=== PATIENT | female | born 1940 ===

== ENCOUNTER 2017-04-15 13:12 | Inpatient (IN) | payer MEDICARE, OTHER ==
--- NOTE | 2017-04-15 13:42 | C.PDOC ---
History Of Present Illness A 76 year old female, with a past medical history that includes HTN and DM, is brought to the ED by EMS for an altered mental status. Patient was previously at baseline and not confused. Patient was not following commands and EMS was called. Patient and Family are poor historians. History provided by EMS was also limited. No reported fever or any other complaints. Time Seen by Provider: 04/15/17 13:14 Chief Complaint (Nursing): Weakness/Neurological Deficit History Per: Patient, EMS, Family History/Exam Limitations: other (Poor historians) Onset/Duration Of Symptoms: Hrs Current Symptoms Are (Timing): Still Present Associated Symptoms Preceding Syncopal Episode: No Predromal Symptoms (Sudden Onset) Seizure Or Post-ictal Symptoms: None Fall Associated With With Symptoms: No Severity: Moderate Recent travel outside of the [place]: No Past Medical History Reviewed: Historical Data, Nursing Documentation, Vital Signs Vital Signs: Last Vital Signs Temp 98.2 F 04/18/17 04:38 Pulse 90 04/18/17 04:38 Resp 20 04/18/17 04:38 BP 146/74 04/18/17 05:52 Pulse Ox 97 04/17/17 23:25 - Medical History PMH: Atrial Fibrillation, HTN, Hypercholesterolemia Family History: States: No Known Family Hx - Social History Hx Alcohol Use: No Hx Substance Use: No - Immunization History Hx Tetanus Toxoid Vaccination: No Hx Influenza Vaccination: No Hx Pneumococcal Vaccination: No Review Of Systems Except As Marked, All Systems Reviewed And Found Negative. Constitutional: Negative for: Fever, Chills Gastrointestinal: Negative for: Nausea, Vomiting, Diarrhea Neurological: Positive for: Altered Mental Status Physical Exam - Physical Exam Appears: Non-toxic Skin: Warm, Dry, No Rash Head: Atraumatic, Normacephalic Eye(s): bilateral: Normal Inspection Oral Mucosa: Moist Cardiovascular: Rhythm Regular Respiratory: Normal Breath Sounds, No Rales, No Rhonchi, No Wheezing Gastrointestinal/Abdominal: Soft, No Tenderness Extremity: Normal ROM, No Tenderness, No Calf Tenderness, No Deformity, No Swelling Neurological/Psych: Other (Able to respond to some commands. Nonverbal. ) ED Course And Treatment - Laboratory Results Result Diagrams: 04/18/17 06:56 04/18/17 06:56 ECG: Interpreted By Me, Viewed By Me ECG Rhythm: Sinus Rhythm Interpretation Of ECG: Nonspecific ST/T changes Rate From EC O2 Sat by Pulse Oximetry: 100 NIHSS Stroke Scale - Date/Time Evaluation Performed Date Performed: 04/15/17 Time Performed: 14:38 - How Severe is the Stoke Level of Consciousness: 0=Alert LOC to Questions: 2=Neither correct LOC to commands: 1=Obeys one correctly Best Gaze: 0=Normal Visual: 3=Bilateral Facial: 1=Minor asymmetry Motor Arm - Left: 2=Falls before 10 sec Motor Arm - Right: 2=Falls before 10 sec Motor Leg - Left: 3=No effort against gravity (falls immediately) Motor Leg - Right: 3=No effort against gravity (falls immediately) Limb Ataxia: 0=Absent Sensory: 2=Severe to total loss Best Language: 3=Mute Dysarthia: 2=Severe, near unintelligible or worse Extinction & Inattention (Neglect): 0=Normal, no object Score: 24 Severity Of Stroke: 16-20=Moderate/Severe Stroke rTPA Inclusion/Exclusion - Refusal of Treatment Patient Refused Treatment: No - Inclusion Criteria for Altepase Patient is 18 years or Older: Yes The Clinical Diagnosis of Ischemic Stroke That is Causing a Potentially Disabling Neurological Deficit: Yes Time of Onset is Well Established to be Less Than 270 Minute Before Treatment Would Begin: Yes Risk/Benefit Discussed With Patient/Family Member Present: Yes - Exclusion Criteria for Altepase Uncontrolled Hypertension at Time of Treatment (Systolic BP above 185 or Diastolic BP above 110 mmHg): Yes - Warning to TPA With Conditions Following Conditions Weighed Against Anticipated Benefit: Yes Condition: Stroke Severity Too Severe (NIHSS greater than 22) Additional Condition (For 3-4.5 Hour Window): NIHSS Above 25 Medical Decision Making Medical Decision Making: Plan: -- CT Head -- EKG -- CXR -- Labs Progress Notes: Discussed patient as a code stroke with Dr. Desai, who states patient is not a tpa candidate. Case discussed with Dr. Giles, who accepts the patient for admission to Tele/Obs. Disposition - Disposition Disposition: HOSPITALIZED Disposition Time: 03:00 Condition: FAIR - Clinical Impression Clinical Impression: Weakness, Altered mental status - Scribe Statement The provider has reviewed the documentation as recorded by the Scribmejia Danielle All medical record entries made by the Scribe were at my direction and personally dictated by me. I have reviewed the chart and agree that the record accurately reflects my personal performance of the history, physical exam, medical decision making, and the department course for this patient. I have also personally directed, reviewed, and agree with the discharge instructions and disposition.
--- NOTE | 2017-04-15 13:43 | CT ---
PROCEDURE: CT HEAD WITHOUT CONTRAST. HISTORY: right side weakness COMPARISON: None available. TECHNIQUE: Axial computed tomography images were obtained through the head/brain without intravenous contrast. Radiation dose: Total exam DLP = mGy-cm. This CT exam was performed using one or more of the following dose reduction techniques: Automated exposure control, adjustment of the mA and/or kV according to patient size, and/or use of iterative reconstruction technique. FINDINGS: HEMORRHAGE: No intracranial hemorrhage. BRAIN: No mass effect or edema. Minimal atrophy, less than expected for patient age. Mild periventricular white matter lucency consistent with age related microvascular white matter ischemic change. Small lucency in left centrum semiovale likely old white matter lacunar infarct. . VENTRICLES: Unremarkable. No hydrocephalus. CALVARIUM: Unremarkable. PARANASAL SINUSES: Unremarkable as visualized. No significant inflammatory changes. MASTOID AIR CELLS: Unremarkable as visualized. No inflammatory changes. OTHER FINDINGS: None. IMPRESSION: No intracranial hemorrhage. No intracranial mass or evidence of acute infarct. Mild involutional change consistent with age. These findings were discussed by telephone with Dr. Plascencia at 1:38 p.m. on 04/15/2017.
[2017-04-15 13:49] LABS: BASO % 0.2 % (0.0-2.0); HEMATOCRIT 42.9 % (34.0-47.0); LYMPH # 1.3 K/uL (1.0-4.3); LYMPH % 13.2 % (20.0-40.0); MEAN CELL VOLUME 90.2 fL (81.0-99.0); MEAN CORPUSCULAR HEMOGLOBIN 30.2 pg (27.0-31.0); MEAN CORPUSCULAR HGB CONC 33.4 g/dL (33.0-37.0); MEAN PLATELET VOLUME 8.4 fL (7.2-11.7); MONO # 0.6 K/uL (0.0-0.8); MONO % 6.5 % (0.0-10.0); RED CELL DISTRIBUTION WIDTH 13.2 % (11.5-14.5); WHITE BLOOD COUNT 9.6 K/uL (4.8-10.8)
[2017-04-15 13:57] LABS: INR 1.1
[2017-04-15 13:59] LABS: CHLORIDE 85 mmol/L (98-107); POTASSIUM 3.9 mmol/L (3.6-5.2); SODIUM 124 mmol/L (132-148)
[2017-04-15] MEDS ORDERED: Labetalol 25mg/5ml Syringe IVP STA (13:59)
[2017-04-15 14:01] LABS: ALB/GLOB RATIO 1.3 (1.0-2.1); ALKALINE PHOSPHATASE 68 U/L (38-126); AST/SGOT 20 U/L (14-36); BILIRUBIN,TOTAL 1.2 mg/dL (0.2-1.3); BLOOD UREA NITROGEN 12 mg/dL (7-17); CARBON DIOXIDE 27 mmol/L (22-30); CHOLESTEROL 224 mg/dL (0-199); GFR AFRICAN-AMERICAN > 60; TOTAL PROTEIN 7.3 g/dL (6.3-8.3)
[2017-04-15 14:02] LABS: ALT/SGPT 16 U/L (9-52)
[2017-04-15] MEDS ORDERED: Labetalol 25mg/5ml Syringe ONE (14:02)
[2017-04-15 14:03] LABS: CALCIUM 8.8 mg/dl (8.6-10.4)
[2017-04-15 14:26] LABS: GLUCOSE,RANDOM 402 mg/dL (65-105)
[2017-04-15] MEDS ORDERED: (Novolin R) Insulin Human Regular 100 units/ml vial IV STA (14:29)
--- NOTE | 2017-04-15 14:39 | RAD ---
HISTORY: code stroke COMPARISON: No prior. FINDINGS: LUNGS: Mild venous congestion. Right hilar prominence. Minimal patchy left basilar airspace opacity. PLEURA: No significant pleural effusion identified, no pneumothorax apparent. CARDIOVASCULAR: Status post median sternotomy. Calcification at the aortic knob. Prior CABG. OSSEOUS STRUCTURES: Calcific tendinopathy of the right proximal humerus. VISUALIZED UPPER ABDOMEN: Normal. OTHER FINDINGS: None. IMPRESSION: Mild venous congestion. Right hilar prominence. Minimal patchy left basilar airspace opacity.
[2017-04-15] MEDS ORDERED: (Novolin R) Insulin Human Regular 100 units/ml vial ONE (14:46)
[2017-04-15 14:55] LABS: RBC URINE 1 /hpf (0-3); URINE BILIRUBIN NEGATIVE (NEGATIVE); URINE BLOOD NEGATIVE (NEGATIVE); URINE COLOR Straw (YELLOW); URINE GLUCOSE (UA) 3+ mg/dL (Normal); URINE KETONE TRACE mg/dL (NEGATIVE); URINE LEUKOCYTE ESTERASE NEG Leu/uL (Negative); URINE PROTEIN 1+ mg/dL (NEGATIVE); URINE UROBILINOGEN NORMAL mg/dL (0.2-1.0); WBC URINE < 1 /hpf (0-5)
[2017-04-15] MEDS ORDERED: Sodium Chloride 0.9% 1,000 ML IV SCH (16:00)
--- NOTE | 2017-04-15 16:31 | CP.PCM.HP ---
<Pravin Bryson - Last Filed: 04/15/17 16:26> History of Present Illness - History of Present Illness History of Present Illness: This is a 76 yo female with past medical hx of Alzheimers, HTN, HLD, heart disease presenting from home after stroke like symptoms. Pt not able to answer any questions. Hx obtained from , who is very poor historian. She was in usual state of health until 11 am this morning when she took all her meds and then looked like she was about to faint. She had trouble walking and seemed to be very weak. She became lethargic and would not respond appropriately. This happened on tuesday. The family says they did not seek med help at that time. The family saw Dr. Michael on tuesday who refilled her medications. Time last known well 11 am- with loss of strength, difficulty with gait, trouble speaking. Denies fevers, chills, cp, sob, vomiting, diarrhea, any bleeding. PMH: HTN, HLD, heart disease, Alzheimer's disease PSH: Heart surgery (unsure what type) Allergies: NKDA FH: Non contributory Social hx: Denies smoking, drinking, drugs. Normally able to do ADLs. Born in [facility]. Meds: cardizem, losartan, hctz, coreg, pravastatin, plavix, isosorbide, glimepiride, lyrica, metformin Present on Admission - Present on Admission Any Indicators Present on Admission: Yes History of DVT/PE: No History of Uncontrolled Diabetes: Yes Urinary Catheter: No Decubitus Ulcer Present: No Review of Systems - Review of Systems Systems not reviewed;Unavailable: Altered Mental Status Past Patient History - Infectious Disease Hx of Infectious Diseases: None - Tetanus Immunizations Tetanus Immunization: Unknown - Past Medical History & Family History Past Medical History?: Yes Past Family History: Reviewed and not pertinent - Past Social History Smoking Status: Never Smoked Chewing Tobacco Use: No Cigar Use: No Alcohol: None Drugs: Denies Home Situation {Lives}: With Family Domestic Violence: Negative - CARDIAC Hx Atrial Fibrillation: Yes Hx Hypercholesterolemia: Yes Hx Hypertension: Yes - ENDOCRINE/METABOLIC Hx Diabetes Mellitus Type 2: Yes - PSYCHIATRIC Hx Substance Use: No Meds Allergies/Adverse Reactions: Allergies Allergy/AdvReac Type Severity Reaction Status Date / Time No Known Allergies Allergy Verified 04/15/17 13:16 Physical Exam - Constitutional Additional comments: Lethargic - Head Exam Head Exam: ATRAUMATIC, NORMAL INSPECTION, NORMOCEPHALIC - Eye Exam Eye Exam: EOMI - ENT Exam ENT Exam: Mucous Membranes Moist - Neck Exam Neck exam: Positive for: Full Rom, Normal Inspection - Respiratory Exam Respiratory Exam: NORMAL BREATHING PATTERN. absent: Respiratory Distress - Cardiovascular Exam Cardiovascular Exam: +S1, +S2 Additional comments: Sternotomy scar - GI/Abdominal Exam GI & Abdominal Exam: Normal Bowel Sounds, Soft. absent: Tenderness - Extremities Exam Extremities exam: Positive for: normal inspection - Neurological Exam Neurological exam: Altered Additional comments: Unable to do full neuro exam due to pt's mental status - Psychiatric Exam Additional comments: Unable to assess - Skin Skin Exam: Dry, Intact, Normal Color, Warm Results - Vital Signs Recent Vital Signs: Last Vital Signs Temp 97.8 F 04/15/17 14:09 Pulse 76 04/15/17 15:40 Resp 17 04/15/17 15:40 BP 161/62 H 04/15/17 15:40 Pulse Ox 98 04/15/17 15:40 - Labs Result Diagrams: 04/15/17 13:43 04/15/17 13:43 Labs: Laboratory Results - last 24 hr 04/15/17 14:35 Urine Color Straw Urine Clarity Clear Urine pH 8.0 Ur Specific [place] 1.012 Urine Protein 1+ H Urine Glucose (UA) 3+ H Urine Ketones Trace Urine Blood Negative Urine Nitrate Negative Urine Bilirubin Negative Urine Urobilinogen Normal Ur Leukocyte Esterase Neg Urine WBC (Auto) < 1 Urine RBC (Auto) 1 Assessment & Plan - Assessment and Plan (Free Text) Assessment: This is a 76 yo female with past medical hx of heart disease, HTN, HLD, DM, presenting with stroke like symptoms 1. R/O stroke -Head CT- negative -echo -carotid dopplers -MRI w /wo contrast -neuro consult. Dr. Desai -NG tube -IV hydralazine 10 mg q 6 prn, sbp > 160 -asa 81 daily -plavix 75 daily -cardio consult. Dr. Daniels -urine drug screen -trops x 3, 1st negative -cxr to confirm ng 2. Hx of HLD -continue crestor daily 3. hx of DM -ISS 4. Hx of HTN -hydralazine as above -continue losartan 100 daily -continue coreg 25 bid 5. GI/DVT -protonix daily -SCDs discussed with Dr. Giles <Medhat Giles - Last Filed: 04/16/17 08:15> Results - Vital Signs Recent Vital Signs: Last Vital Signs Temp 97.5 F L 04/15/17 23:30 Pulse 70 04/16/17 00:36 Resp 20 04/15/17 23:30 BP 167/73 H 04/15/17 23:30 Pulse Ox 96 04/15/17 23:30 - Labs Result Diagrams: 04/16/17 06:13 04/16/17 06:13 Labs: Laboratory Results - last 24 hr 04/15/17 04/15/17 04/15/17 14:35 17:22 19:53 WBC RBC Hgb Hct MCV MCH MCHC RDW Plt Count MPV Neut % (Auto) Lymph % (Auto) [place] % (Auto) Eos % (Auto) Baso % (Auto) Neut # Lymph # [place] # Eos # Baso # Sodium Potassium Chloride Carbon Dioxide Anion Gap BUN Creatinine Est GFR ( Amer) Est GFR (Non-Af Amer) Random Glucose Calcium Phosphorus Magnesium Total Bilirubin AST ALT Alkaline Phosphatase Troponin I < 0.0120 Total Protein Albumin Globulin Albumin/Globulin Ratio Urine Color Straw Urine Clarity Clear Urine pH 8.0 Ur Specific [place] 1.012 Urine Protein 1+ H Urine Glucose (UA) 3+ H Urine Ketones Trace Urine Blood Negative Urine Nitrate Negative Urine Bilirubin Negative Urine Urobilinogen Normal Ur Leukocyte Esterase Neg Urine WBC (Auto) < 1 Urine RBC (Auto) 1 Urine Opiates Screen Negative Urine Methadone Screen Negative Ur Barbiturates Screen Negative Ur Phencyclidine Scrn Negative Ur Amphetamines Screen Negative U Benzodiazepines Scrn Negative U Oth Cocaine Metabols Negative U Cannabinoids Screen Negative 04/16/17 04/16/17 04/16/17 02:45 06:13 06:13 WBC 11.2 H RBC 4.53 Hgb 13.7 Hct 40.5 MCV 89.5 MCH 30.3 MCHC 33.8 RDW 13.2 Plt Count 179 MPV 8.4 Neut % (Auto) 76.9 H Lymph % (Auto) 15.9 L [place] % (Auto) 6.9 Eos % (Auto) 0.0 Baso % (Auto) 0.3 Neut # 8.6 H Lymph # 1.8 [place] # 0.8 Eos # 0.0 Baso # 0.0 Sodium 125 L Potassium 3.2 L Chloride 89 L Carbon Dioxide 24 Anion Gap 15 BUN 10 Creatinine 0.6 L Est GFR ( Amer) > 60 Est GFR (Non-Af Amer) > 60 Random Glucose 192 H Calcium 8.1 L Phosphorus 4.2 Magnesium 1.2 L Total Bilirubin 1.0 AST 19 ALT 13 Alkaline Phosphatase 48 Troponin I 0.0450 Total Protein 6.2 L Albumin 3.4 L Globulin 2.9 Albumin/Globulin Ratio 1.2 Urine Color Urine Clarity Urine pH Ur Specific [place] Urine Protein Urine Glucose (UA) Urine Ketones Urine Blood Urine Nitrate Urine Bilirubin Urine Urobilinogen Ur Leukocyte Esterase Urine WBC (Auto) Urine RBC (Auto) Urine Opiates Screen Urine Methadone Screen Ur Barbiturates Screen Ur Phencyclidine Scrn Ur Amphetamines Screen U Benzodiazepines Scrn U Oth Cocaine Metabols U Cannabinoids Screen Attending/Attestation - Attestation I have personally seen and examined this patient.: Yes I have fully participated in the care of the patient.: Yes I have reviewed all pertinent clinical information: Yes Notes (Text): 04/16/17 08:12 Medical attending: Patient was seen and examined by me, agrees the above note by medical review specialist. The patient was seen in the emergency room, her was present as well as an additional family member at bedside. Neurology said that they do not believe this patient is a TPA candidate. Were try to get MRI with contrast be done however I was told that the machine was currently down yesterday. In the meantime were to get additional cardiac enzymes, EKGs, echo as well. The patient is on Plavix and when I asked the about this he said that he did not know why she also has a noticeable chest scar on her potentially she could've had a bypass or heart valve replacement. However the is not sure I later spoke with the patient's primary care physician and asked if he was aware of any of her cardiac history however he explains to me that this patient was formally from another practice and he has just recently started to see the patient so he is not aware of any cardiac history. The patient will need both a cardiology and neurology evaluation. The patient is awake, however she is not following any commands, and she does appear to be confused as reported above in the resident note. She is observed to be moving all 4 extremities, and this is after we attempted to pass NG tube. She pulled out the first NG tube and I had to replace the second one In the meantime she's given need to be on aspirin statin, moderate blood pressure control. We have to monitor her the patient's sodium as it is 124 -we' re to discontinue the hydrochlorothiazide. Examination she does appear to be somewhat dry in appearance Thank you very much, Medhat Giles 04/16/17 08:15
--- NOTE | 2017-04-15 16:56 | RAD ---
HISTORY: ng tube COMPARISON: 04/15/2017 at 1:38 p.m. FINDINGS: LUNGS: No active pulmonary disease. PLEURA: No significant pleural effusion identified, no pneumothorax apparent. CARDIOVASCULAR: Normal heart size. Sternotomy wires. New nasogastric tube extends to left upper quadrant of the abdomen. OSSEOUS STRUCTURES: No significant abnormalities. VISUALIZED UPPER ABDOMEN: Normal. OTHER FINDINGS: None. IMPRESSION: New NG tube appropriately positioned.
[2017-04-15] MEDS ORDERED: Sodium Chloride 0.9% 1,000 ML ONE (18:05)
--- NOTE | 2017-04-15 21:35 | CP.PCM.CON ---
History of Present Illness - History of Present Illness History of Present Illness: Patient seen and evaluated Admitted for possible CVA H/O Open heart surgery PMH: HTN, HLD, heart disease, Alzheimer's disease PSH: Heart surgery (unsure what type) Allergies: NKDA FH: Non contributory Social hx: Denies smoking, drinking, drugs. Normally able to do ADLs. Born in [facility]. Meds: cardizem, losartan, hctz, coreg, pravastatin, plavix, isosorbide, glimepiride, lyrica, metformin Present on Admission - Present on Admission Any Indicators Present on Admission: Yes History of DVT/PE: No History of Uncontrolled Diabetes: Yes Urinary Catheter: No Decubitus Ulcer Present: No Review of Systems - Review of Systems Systems not reviewed;Unavailable: Altered Mental Status Meds Allergies/Adverse Reactions: Allergies Allergy/AdvReac Type Severity Reaction Status Date / Time No Known Allergies Allergy Verified 04/15/17 13:16 Physical Exam - Constitutional Additional comments: Lethargic - Head Exam Head Exam: ATRAUMATIC, NORMAL INSPECTION, NORMOCEPHALIC - Eye Exam Eye Exam: EOMI - ENT Exam ENT Exam: Mucous Membranes Moist - Neck Exam Neck exam: Positive for: Full Rom, Normal Inspection - Respiratory Exam Respiratory Exam: NORMAL BREATHING PATTERN. absent: Respiratory Distress - Cardiovascular Exam Cardiovascular Exam: +S1, +S2 Additional comments: Sternotomy scar - GI/Abdominal Exam GI & Abdominal Exam: Normal Bowel Sounds, Soft. absent: Tenderness - Extremities Exam Extremities exam: Positive for: normal inspection - Neurological Exam Neurological exam: Altered Additional comments: Unable to do full neuro exam due to pt's mental status - Psychiatric Exam Additional comments: Unable to assess - Skin Skin Exam: Dry, Intact, Normal Color, Warm Past Patient History - Infectious Disease Hx of Infectious Diseases: None - Tetanus Immunizations Tetanus Immunization: Unknown - Past Medical History & Family History Past Medical History?: Yes Past Family History: Reviewed and not pertinent - Past Social History Smoking Status: Never Smoked Chewing Tobacco Use: No Cigar Use: No Alcohol: None Drugs: Denies Home Situation {Lives}: With Family Domestic Violence: Negative - CARDIAC Hx Atrial Fibrillation: Yes Hx Hypercholesterolemia: Yes Hx Hypertension: Yes - ENDOCRINE/METABOLIC Hx Diabetes Mellitus Type 2: Yes - PSYCHIATRIC Hx Substance Use: No Meds Allergies/Adverse Reactions: Allergies Allergy/AdvReac Type Severity Reaction Status Date / Time No Known Allergies Allergy Verified 04/15/17 13:16 - Medications Medications: Current Medications Aspirin (Aspirin Supp) 300 mg [place] DAILY [facility] Last Admin: 04/15/17 14:11 Dose: 300 mg Aspirin (Aspirin Chewable) 81 mg PO DAILY [facility] Carvedilol (Coreg) 25 mg PO BID [facility] Last Admin: 04/15/17 18:55 Dose: 25 mg Clopidogrel Bisulfate (Plavix) 75 mg PO DAILY [facility] Famotidine (Pepcid) 20 mg IVP Q12 [facility] Hydralazine HCl (Apresoline) 10 mg IVP Q6H PRN PRN Reason: Systolic Blood Pressure Last Admin: 04/15/17 18:07 Dose: 10 mg Sodium Chloride (Sodium Chloride 0.9%) 1,000 mls @ 50 mls/hr IV .Q20H [facility] Last Admin: 04/15/17 16:45 Dose: 50 mls/hr Insulin Human Regular (Novolin R) 0 unit SC ACHS [facility] PRN Reason: Protocol Losartan Potassium (Cozaar) 100 mg PO DAILY [facility] Rosuvastatin Calcium (Crestor) 10 mg PO [facility] Results - Vital Signs Recent Vital Signs: Last Vital Signs Temp 97.8 F 04/15/17 14:09 Pulse 78 04/15/17 20:10 Resp 18 04/15/17 20:10 BP 119/73 04/15/17 20:10 Pulse Ox 99 04/15/17 20:10 - Labs Result Diagrams: 04/16/17 06:13 04/16/17 06:13 Labs: Laboratory Results - last 24 hr 04/15/17 04/15/17 04/15/17 14:35 17:22 19:53 Troponin I < 0.0120 Urine Color Straw Urine Clarity Clear Urine pH 8.0 Ur Specific [place] 1.012 Urine Protein 1+ H Urine Glucose (UA) 3+ H Urine Ketones Trace Urine Blood Negative Urine Nitrate Negative Urine Bilirubin Negative Urine Urobilinogen Normal Ur Leukocyte Esterase Neg Urine WBC (Auto) < 1 Urine RBC (Auto) 1 Urine Opiates Screen Negative Urine Methadone Screen Negative Ur Barbiturates Screen Negative Ur Phencyclidine Scrn Negative Ur Amphetamines Screen Negative U Benzodiazepines Scrn Negative U Oth Cocaine Metabols Negative U Cannabinoids Screen Negative Assessment & Plan - Assessment and Plan (Free Text) Assessment: This is a 76 yo female with past medical hx of heart disease, HTN, HLD, DM, presenting with stroke like symptoms 1. R/O stroke -Head CT- negative -echo -carotid dopplers -MRI w /wo contrast -neuro consult. Dr. Desai -NG tube -IV hydralazine 10 mg q 6 prn, sbp > 160 -asa 81 daily -plavix 75 daily -urine drug screen -trops x 3, 1st negative -cxr to confirm ng 2. Hx of HLD -continue crestor daily 3. hx of DM -ISS 4. Hx of HTN -hydralazine as above -continue losartan 100 daily -continue coreg 25 bid 5. GI/DVT -protonix daily -SCDs
[2017-04-15] MEDS: (Novolin R) Insulin Human Regular 100 units/ml vial SC SCH (23:00)
[2017-04-16 06:26] LABS: BASO % 0.3 % (0.0-2.0); HEMATOCRIT 40.5 % (34.0-47.0); LYMPH # 1.8 K/uL (1.0-4.3); LYMPH % 15.9 % (20.0-40.0); MEAN CELL VOLUME 89.5 fL (81.0-99.0); MEAN CORPUSCULAR HEMOGLOBIN 30.3 pg (27.0-31.0); MEAN CORPUSCULAR HGB CONC 33.8 g/dL (33.0-37.0); MEAN PLATELET VOLUME 8.4 fL (7.2-11.7); MONO # 0.8 K/uL (0.0-0.8); MONO % 6.9 % (0.0-10.0); RED CELL DISTRIBUTION WIDTH 13.2 % (11.5-14.5); WHITE BLOOD COUNT 11.2 K/uL (4.8-10.8)
[2017-04-16 06:35] LABS: CHLORIDE 89 mmol/L (98-107); SODIUM 125 mmol/L (132-148)
[2017-04-16 06:36] LABS: POTASSIUM 3.2 mmol/L (3.6-5.2)
[2017-04-16 06:38] LABS: ALB/GLOB RATIO 1.2 (1.0-2.1); ALKALINE PHOSPHATASE 48 U/L (38-126); ALT/SGPT 13 U/L (9-52); AST/SGOT 19 U/L (14-36); BLOOD UREA NITROGEN 10 mg/dL (7-17); CARBON DIOXIDE 24 mmol/L (22-30); GFR AFRICAN-AMERICAN > 60; GLUCOSE,RANDOM 192 mg/dL (65-105); TOTAL PROTEIN 6.2 g/dL (6.3-8.3)
[2017-04-16 06:39] LABS: CALCIUM 8.1 mg/dl (8.6-10.4); MAGNESIUM 1.2 mg/dL (1.6-2.3); PHOSPHOROUS 4.2 mg/dL (2.5-4.5)
[2017-04-16] MEDS: (Novolin R) Insulin Human Regular 100 units/ml vial SC SCH ×4 (07:30→21:40)
--- NOTE | 2017-04-16 08:09 | RAD ---
HISTORY: confirm NGT placement COMPARISON: 04/15/2017 FINDINGS: LUNGS: NG tube coiled in the stomach. Biapical pleural thickening with upper lobe granulomatous changes. Mild venous congestion. Right hilar prominence. Questionable lucency at the right lung apex may be related to artifact. Repeat study is recommended. PLEURA: As above. CARDIOVASCULAR: Cardiomegaly. Status post median sternotomy and CABG. OSSEOUS STRUCTURES: Degenerative changes in the spine and shoulders. Calcific tendinopathy of the right proximal humerus. VISUALIZED UPPER ABDOMEN: Normal. OTHER FINDINGS: None. IMPRESSION: NG tube coiled in the stomach. Biapical pleural thickening with upper lobe granulomatous changes. Mild venous congestion. Right hilar prominence. Questionable lucency at the right lung apex may be related to artifact. Repeat study is recommended.
--- NOTE | 2017-04-16 10:38 | CP.PCM.PN ---
Subjective - Date & Time of Evaluation Date of Evaluation: 04/16/17 Time of Evaluation: 10:15 - Subjective Subjective: The patient pulled her NGT again. Yesterday when I saw patient in ER I placed it once. Then I left and she pulled it and I placed it again. I will not place it a third time. Fortunately the patient is much more alert today and much more verbal than in the ER. She still appears to be confused but she did follow some very simple commands in French today. This is a marked improvement then when we saw patient in the ER. So will re-order the swallow study. She was talkative, however confused She is moving bilateral upper extremity. Objective - Vital Signs/Intake and Output Vital Signs (last 24 hours): Temp Pulse Resp BP Pulse Ox 97.9 F 101 H 18 124/77 98 04/16/17 07:17 04/16/17 07:17 04/16/17 07:17 04/16/17 07:17 04/16/17 07:17 Intake and Output: 04/16/17 04/16/17 06:59 18:59 Output Total 1385 Balance -1385 - Medications Medications: Current Medications Aspirin (Aspirin Supp) 300 mg CO DAILY [facility] Last Admin: 04/15/17 14:11 Dose: 300 mg Aspirin (Aspirin Chewable) 81 mg PO DAILY [facility] Carvedilol (Coreg) 25 mg PO BID [facility] Last Admin: 04/15/17 18:55 Dose: 25 mg Clopidogrel Bisulfate (Plavix) 75 mg PO DAILY [facility] Famotidine (Pepcid) 20 mg IVP Q12 [facility] Last Admin: 04/15/17 23:00 Dose: 20 mg Hydralazine HCl (Apresoline) 10 mg IVP Q6H PRN PRN Reason: Systolic Blood Pressure Last Admin: 04/15/17 18:07 Dose: 10 mg Sodium Chloride (Sodium Chloride 0.9%) 1,000 mls @ 50 mls/hr IV .Q20H [facility] Last Admin: 04/15/17 16:45 Dose: 50 mls/hr Insulin Human Regular (Novolin R) 0 unit SC ACHS [facility] PRN Reason: Protocol Last Admin: 04/16/17 07:30 Dose: Not Given Losartan Potassium (Cozaar) 100 mg PO DAILY [facility] Rosuvastatin Calcium (Crestor) 10 mg PO HS [facility] Last Admin: 04/15/17 23:10 Dose: 10 mg - Labs Labs: 04/16/17 06:13 04/16/17 06:13 PT 12.0 SECONDS (9.7-12.2) 04/15/17 13:43 INR 1.1 04/15/17 13:43 APTT 28 SECONDS (21-34) 04/15/17 13:43 - Constitutional Appears: No Acute Distress, Confused, Chronically Ill - Head Exam Head Exam: NORMAL INSPECTION, NORMOCEPHALIC - Eye Exam Eye Exam: EOMI, Normal appearance - Respiratory Exam Respiratory Exam: Clear to Ausculation Bilateral, NORMAL BREATHING PATTERN - Cardiovascular Exam Cardiovascular Exam: REGULAR RHYTHM - GI/Abdominal Exam GI & Abdominal Exam: Soft, Normal Bowel Sounds - Neurological Exam Neurological Exam: Alert, Altered, Awake. absent: Oriented x3 Neuro motor strength exam: Left Upper Extremity: 5, Right Upper Extremity: 5 - Psychiatric Exam Psychiatric exam: Flat Affect - Skin Skin Exam: Normal Color, Warm Assessment and Plan - Assessment and Plan (Free Text) Assessment: 1. 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 When seen in the ER she did not pass swallow eval and was very somnolent, confused, she said yes to every question I asked. NGT x 2 but she pulled it out again this morning. She is now much more awake and alert. Will re-order swallow evaluation. ASA, Statin, and also hydralzine IV if > 160 systolic. Currently pending on MRI, echo was done but still pending read. Her cardiac enzymes have been negative. She does have a cardiac history including being on Plavix and also a chest scar suggesting either CABG or valve replacement - however the does not know this and the PMD explains this is a new patient to him. She has a traylor placed on 04/15 2. History of Alzheimer 04/16: According to the and family at bedside there is dementia however not severe. They explain that at her baseline she walks, talks, and still has a fair amount performing of ADLs. Currently this morning more awake, alert, but confused 3. Hx of Hyperlipiedemeia ASA, Crestor 4. Hx of DM 04/16: As of this morning the accuchecks are not recorded yet, I need to talk to someone. Also continue on the SSI and ARB, Statin, ASA -ISS 5. HTN 04/16: Better today. Her HCTZ was held due to the low Na. She is on slow IVF. Systolic BPs are 140s to 150s at this time. Hydralazine as above Losartan 100 daily Coreg 25 bid 6. Prophylactic measures Protonix SCDs
--- NOTE | 2017-04-16 22:56 | CP.PCM.PN ---
Subjective - Date & Time of Evaluation Date of Evaluation: 04/16/17 Time of Evaluation: 11:20 - Subjective Subjective: Patient seen and evaluated No new events noted Physical Examination - Constitutional Appears: No Acute Distress, Confused, Chronically Ill - Head Exam Head Exam: NORMAL INSPECTION, NORMOCEPHALIC - Eye Exam Eye Exam: EOMI, Normal appearance - Respiratory Exam Respiratory Exam: Clear to Ausculation Bilateral, NORMAL BREATHING PATTERN - Cardiovascular Exam Cardiovascular Exam: REGULAR RHYTHM - GI/Abdominal Exam GI & Abdominal Exam: Soft, Normal Bowel Sounds - Neurological Exam Neurological Exam: Alert, Altered, Awake. absent: Oriented x3 Neuro motor strength exam: Left Upper Extremity: 5, Right Upper Extremity: 5 - Psychiatric Exam Psychiatric exam: Flat Affect - Skin Skin Exam: Normal Color, Warm Objective - Vital Signs/Intake and Output Vital Signs (last 24 hours): Temp Pulse Resp BP Pulse Ox 98.2 F 69 20 151/72 H 98 04/16/17 15:42 04/16/17 15:42 04/16/17 15:42 04/16/17 17:46 04/16/17 15:42 - Medications Medications: Current Medications Aspirin (Aspirin Supp) 300 mg KS DAILY [facility] Last Admin: 04/15/17 14:11 Dose: 300 mg Aspirin (Aspirin Chewable) 81 mg PO DAILY [facility] Last Admin: 04/16/17 12:06 Dose: 81 mg Carvedilol (Coreg) 25 mg PO BID [facility] Last Admin: 04/16/17 17:46 Dose: 25 mg Clopidogrel Bisulfate (Plavix) 75 mg PO DAILY [facility] Last Admin: 04/16/17 12:05 Dose: 75 mg Famotidine (Pepcid) 20 mg IVP Q12 [facility] Last Admin: 04/16/17 21:59 Dose: 20 mg Hydralazine HCl (Apresoline) 10 mg IVP Q6H PRN PRN Reason: Systolic Blood Pressure Last Admin: 04/15/17 18:07 Dose: 10 mg Potassium Chloride 40 meq/ (Sodium Chloride) 1,020 mls @ 50 mls/hr IV .[id number] [facility] Last Admin: 04/16/17 10:45 Dose: 50 mls/hr Insulin Human Regular (Novolin R) 0 unit SC ACHS [facility] PRN Reason: Protocol Last Admin: 04/16/17 21:40 Dose: Not Given Losartan Potassium (Cozaar) 100 mg PO DAILY [facility] Last Admin: 04/16/17 12:05 Dose: 100 mg Pneumococcal Polyvalent Vaccine (Pneumovax 23 Vaccine) 0.5 ml IM .ONCE ONE Stop: 04/18/17 10:01 Rosuvastatin Calcium (Crestor) 10 mg PO [facility] Last Admin: 04/16/17 21:59 Dose: 10 mg - Labs Labs: 04/16/17 06:13 04/16/17 06:13 PT 12.0 SECONDS (9.7-12.2) 04/15/17 13:43 INR 1.1 04/15/17 13:43 APTT 28 SECONDS (21-34) 04/15/17 13:43 Assessment and Plan - Assessment and Plan (Free Text) Assessment: 1. CVA/ TIA, ECHO: LVH, Normal EF 2. History of Alzheimer 04/16: According to the and family at bedside there is dementia however not severe. They explain that at her baseline she walks, talks, and still has a fair amount performing of ADLs. Currently this morning more awake, alert, but confused 3. Hx of Hyperlipiedemeia ASA, Crestor 4. Hx of DM 04/16: As of this morning the accuchecks are not recorded yet, I need to talk to someone. Also continue on the SSI and ARB, Statin, ASA -ISS 5. HTN 04/16: Better today. Her HCTZ was held due to the low Na. She is on slow IVF. Systolic BPs are 140s to 150s at this time. Hydralazine as above Losartan 100 daily Coreg 25 bid 6. Prophylactic measures Protonix SCDs
[2017-04-17] MEDS: (Novolin R) Insulin Human Regular 100 units/ml vial SC SCH ×4 (08:13→22:42)
[2017-04-17 08:26] LABS: BASO % 0.2 % (0.0-2.0); HEMATOCRIT 42.3 % (34.0-47.0); LYMPH # 1.2 K/uL (1.0-4.3); LYMPH % 11.5 % (20.0-40.0); MEAN CELL VOLUME 90.1 fL (81.0-99.0); MEAN CORPUSCULAR HEMOGLOBIN 30.5 pg (27.0-31.0); MEAN CORPUSCULAR HGB CONC 33.9 g/dL (33.0-37.0); MEAN PLATELET VOLUME 8.8 fL (7.2-11.7); MONO # 0.8 K/uL (0.0-0.8); RED CELL DISTRIBUTION WIDTH 13.6 % (11.5-14.5); WHITE BLOOD COUNT 10.1 K/uL (4.8-10.8)
[2017-04-17 08:41] LABS: CHLORIDE 96 mmol/L (98-107)
[2017-04-17 08:42] LABS: POTASSIUM 3.6 mmol/L (3.6-5.2); SODIUM 129 mmol/L (132-148)
[2017-04-17 08:44] LABS: ALB/GLOB RATIO 1.1 (1.0-2.1); ALKALINE PHOSPHATASE 50 U/L (38-126); AST/SGOT 16 U/L (14-36); BILIRUBIN,TOTAL 0.9 mg/dL (0.2-1.3); BLOOD UREA NITROGEN 9 mg/dL (7-17); CARBON DIOXIDE 22 mmol/L (22-30); GFR AFRICAN-AMERICAN > 60; GLUCOSE,RANDOM 204 mg/dL (65-105); TOTAL PROTEIN 6.3 g/dL (6.3-8.3)
[2017-04-17 08:45] LABS: ALT/SGPT 18 U/L (9-52); CALCIUM 8.1 mg/dl (8.6-10.4)
[2017-04-17] MEDS: diltiaZEM 120 mg/24 Hours CD Cap PO SCH (09:06)
--- NOTE | 2017-04-17 09:29 | CP.PCM.PN ---
Subjective - Date & Time of Evaluation Date of Evaluation: 04/17/17 Time of Evaluation: 09:00 - Subjective Subjective: As mentioned before we are seeing this patient with sudden change in mental status, a code stroke was called in ER. We are still pending MRI at this time, we can't seem to get in contact with the (whom I saw briefly in ER). Echo done, pending official read Patient was tachycardic this morning HR was 110s on the telemetry. We held the cardizem on admission so will restart this When I came and saw the patient she was alert, awake, and very talkative - however confused. She only followed some commands. She was able to stick her tounge out on command, raise her hands, however was not moving her legs on command (she was observed before to move both legs when we placed NGT) She is swallow ok, for now we have her on a pureed diet and nectar thick liquid. BP is mostly in the 120s and 130 systolic range. As mentioned before she is confused, she was able to tell me that she was not short of breath, and not having chest pain. Objective - Vital Signs/Intake and Output Vital Signs (last 24 hours): Temp Pulse Resp BP Pulse Ox 98.1 F 115 H 20 149/70 97 04/17/17 07:30 04/17/17 07:30 04/17/17 07:30 04/17/17 09:07 04/17/17 07:30 Intake and Output: 04/17/17 04/17/17 06:59 18:59 Intake Total 850 Output Total 1380 Balance -530 - Medications Medications: Current Medications Aspirin (Aspirin Chewable) 81 mg PO DAILY [facility] Last Admin: 04/17/17 09:06 Dose: 81 mg Carvedilol (Coreg) 25 mg PO BID [facility] Last Admin: 04/17/17 09:07 Dose: 25 mg Clopidogrel Bisulfate (Plavix) 75 mg PO DAILY [facility] Last Admin: 04/17/17 09:09 Dose: 75 mg Diltiazem HCl (Cardizem Cd) 120 mg PO DAILY [facility] Last Admin: 04/17/17 09:06 Dose: 120 mg Famotidine (Pepcid) 20 mg IVP Q12 [facility] Last Admin: 04/17/17 09:09 Dose: 20 mg Hydralazine HCl (Apresoline) 10 mg IVP Q6H PRN PRN Reason: Systolic Blood Pressure Last Admin: 04/17/17 00:35 Dose: 10 mg Potassium Chloride 40 meq/ (Sodium Chloride) 1,020 mls @ 50 mls/hr IV .[id number] [facility] Last Admin: 04/17/17 06:14 Dose: 50 mls/hr Insulin Human Regular (Novolin R) 0 unit SC ACHS [facility] PRN Reason: Protocol Last Admin: 04/17/17 08:13 Dose: 2 unit Losartan Potassium (Cozaar) 100 mg PO DAILY [facility] Last Admin: 04/17/17 09:08 Dose: 100 mg Pneumococcal Polyvalent Vaccine (Pneumovax 23 Vaccine) 0.5 ml IM .ONCE ONE Stop: 04/18/17 10:01 Rosuvastatin Calcium (Crestor) 10 mg PO HS [facility] Last Admin: 04/16/17 21:59 Dose: 10 mg - Labs Labs: 04/17/17 08:12 04/17/17 08:12 PT 12.0 SECONDS (9.7-12.2) 04/15/17 13:43 INR 1.1 04/15/17 13:43 APTT 28 SECONDS (21-34) 04/15/17 13:43 - Constitutional Appears: No Acute Distress, Confused, Chronically Ill - Head Exam Head Exam: ATRAUMATIC, NORMAL INSPECTION, NORMOCEPHALIC - Eye Exam Eye Exam: EOMI - ENT Exam ENT Exam: Mucous Membranes Moist - Respiratory Exam Respiratory Exam: Clear to Ausculation Bilateral, NORMAL BREATHING PATTERN - Cardiovascular Exam Cardiovascular Exam: REGULAR RHYTHM - GI/Abdominal Exam GI & Abdominal Exam: Soft, Normal Bowel Sounds - Neurological Exam Neurological Exam: Alert, Altered, Awake, CN II-XII Intact Neuro motor strength exam: Left Upper Extremity: 5, Right Upper Extremity: 5 - Psychiatric Exam Psychiatric exam: Depressed, Flat Affect - Skin Skin Exam: Dry, Normal Color, Warm Assessment and Plan - Assessment and Plan (Free Text) Assessment: 1. CVA/ TIA, not TPA per neurology 04/17: We are still pending the MRI, we are trying to get in touch with family. Change medications to PO. She is very talkative. On a pureed diet and nectar thick liquids at the moment. I'm curious to see if she will cooperate for PT or not 04/16: The initial head CT w/o contrast in the ER was negative. When seen in the ER she did not pass swallow eval and was very somnolent, confused, she said yes to every question I asked. NGT x 2 but she pulled it out again this morning. She is now much more awake and alert. Will re-order swallow evaluation. ASA, Statin, and also hydralzine IV if > 160 systolic. Currently pending on MRI, echo was done but still pending read. Her cardiac enzymes have been negative. She does have a cardiac history including being on Plavix and also a chest scar suggesting either CABG or valve replacement - however the does not know this and the PMD explains this is a new patient to him. She has a traylor placed on 04/15 2. History of Alzheimer 04/16: According to the and family at bedside there is dementia however not severe. They explain that at her baseline she walks, talks, and still has a fair amount performing of ADLs. Currently this morning more awake, alert, but confused 3. Hx of Hyperlipiedemeia ASA, Crestor 4. Hx of DM 04/16: As of this morning the accuchecks are not recorded yet, I need to talk to someone. Also continue on the SSI and ARB, Statin, ASA -ISS 5. HTN 04/17: Systolic in the 120s and 130s today 04/16: Better today. Her HCTZ was held due to the low Na. She is on slow IVF. Systolic BPs are 140s to 150s at this time. Hydralazine as above Losartan 100 daily Coreg 25 bid 6. Prophylactic measures Protonix SCDs
--- NOTE | 2017-04-17 18:11 | CARD ---
APPROVED REPORT EXAM: Two-dimensional and M-mode echocardiogram with Doppler and color Doppler. Other Information Quality : GoodRhythm : NSR INDICATION Dizziness and Vertigo Cardiac Disease: Syncope STROKE 2D DIMENSIONS LVOT Diameter1.8 (1.8-2.4cm) M-Mode DIMENSIONS RVDd1.23 (2.1-3.2cm)Left Atrium (MM)3.70 (2.5-4.0cm) IVSd0.69 (0.7-1.1cm)Aortic Root2.66 (2.2-3.7cm) LVDd4.53 (4.0-5.6cm)Aortic Cusp Exc.1.90 (1.5-2.0cm) PWd0.94 (0.7-1.1cm)FS (%) 53 % LVDs1.77 (2.0-3.8cm)LVEF (%)72 (>50%) Aortic Valve AoV Peak Awrxbdqa249.1cm/sAoV VTI20.2cmAO Peak GR.6mmHg LVOT Peak Uwsuqcxr14.0cm/sLVOT VTI18.07cmAO Mean GR.3mmHg NILESH (VMAX)2.23tk5UZH (VTI)2.38cm2 Mitral Valve MV E Bdhlhkix49.0cm/sMV A Jwxsfixr558.3cm/sMV ABU137bs E/A ratio0.5MVA (PHT)1.83cm2 TDI E/Lateral E'0.0E/Medial E'0.0 Tricuspid Valve TR Peak Hhudnnrv279gs/sTR Peak Gr.0lcVqOBUF29fbUp LEFT VENTRICLE The left ventricle is normal size. There is normal left ventricular wall thickness. The left ventricular function is normal. The left ventricular ejection fraction is within the normal range. The Ejection Fraction is >55%. No regional wall motion abnormalities noted. The left ventricular diastolic function is normal. No left ventricle thrombus noted on this study. There is no ventricular septal defect visualized. There is no left ventricular aneurysm. There is no mass noted in the left ventricle. RIGHT VENTRICLE The right ventricle is normal size. There is normal right ventricular wall thickness. The right ventricular systolic function is normal. ATRIA The left atrium size is normal. The right atrium size is normal. The interatrial septum is intact with no evidence for an atrial septal defect. AORTIC VALVE The aortic valve is normal in structure and function. No aortic regurgitation is present. There is no aortic valvular stenosis. There is no aortic valvular vegetation. MITRAL VALVE The mitral valve is normal in structure and function. There is no evidence of mitral valve prolapse. There is no mitral valve stenosis. There is no mitral valve regurgitation noted. TRICUSPID VALVE The tricuspid valve is normal in structure and function. There is no tricuspid valve regurgitation noted. There is no tricuspid valve prolapse or vegetation. There is no tricuspid valve stenosis. PULMONIC VALVE The pulmonary valve is normal in structure and function. There is no pulmonic valvular regurgitation. There is no pulmonic valvular stenosis. GREAT VESSELS The aortic root is normal in size. The ascending aorta is normal in size. The pulmonary artery is normal. The IVC is normal in size and collapses >50% with inspiration. PERICARDIAL EFFUSION The pericardium appears normal. There is no pleural effusion. <Conclusion> The left ventricle is normal size. The left ventricular ejection fraction is within the normal range. The Ejection Fraction is >55%. There is no mass noted in the left ventricle.
--- NOTE | 2017-04-17 23:58 | CP.PCM.PN ---
Subjective - Date & Time of Evaluation Date of Evaluation: 04/17/17 Time of Evaluation: 10:10 - Subjective Subjective: Patient seen and evaluated No new events noted Physical Examination - Constitutional Appears: No Acute Distress, Confused, Chronically Ill - Head Exam Head Exam: NORMAL INSPECTION, NORMOCEPHALIC - Eye Exam Eye Exam: EOMI, Normal appearance - Respiratory Exam Respiratory Exam: Clear to Ausculation Bilateral, NORMAL BREATHING PATTERN - Cardiovascular Exam Cardiovascular Exam: REGULAR RHYTHM - GI/Abdominal Exam GI & Abdominal Exam: Soft, Normal Bowel Sounds - Neurological Exam Neurological Exam: Alert, Altered, Awake. absent: Oriented x3 Neuro motor strength exam: Left Upper Extremity: 5, Right Upper Extremity: 5 - Psychiatric Exam Psychiatric exam: Flat Affect - Skin Skin Exam: Normal Color, Warm Objective - Vital Signs/Intake and Output Vital Signs (last 24 hours): Temp Pulse Resp BP Pulse Ox 98.2 F 91 H 20 153/79 H 97 04/17/17 15:51 04/17/17 15:51 04/17/17 15:51 04/17/17 17:54 04/17/17 15:51 Intake and Output: 04/17/17 04/18/17 18:59 06:59 Intake Total 400 Output Total 250 Balance 150 - Medications Medications: Current Medications Aspirin (Aspirin Chewable) 81 mg PO DAILY [facility] Last Admin: 04/17/17 09:06 Dose: 81 mg Carvedilol (Coreg) 25 mg PO BID [facility] Last Admin: 04/17/17 17:54 Dose: 25 mg Clopidogrel Bisulfate (Plavix) 75 mg PO DAILY [facility] Last Admin: 04/17/17 09:09 Dose: 75 mg Diltiazem HCl (Cardizem Cd) 120 mg PO DAILY [facility] Last Admin: 04/17/17 09:06 Dose: 120 mg Famotidine (Pepcid) 20 mg IVP Q12 [facility] Last Admin: 04/17/17 22:16 Dose: 20 mg Hydralazine HCl (Apresoline) 10 mg IVP Q6H PRN PRN Reason: Systolic Blood Pressure Last Admin: 04/17/17 00:35 Dose: 10 mg Potassium Chloride 40 meq/ (Sodium Chloride) 1,020 mls @ 50 mls/hr IV .[id number] [facility] Last Admin: 04/17/17 06:14 Dose: 50 mls/hr Insulin Human Regular (Novolin R) 0 unit SC ACHS [facility] PRN Reason: Protocol Last Admin: 04/17/17 22:42 Dose: Not Given Losartan Potassium (Cozaar) 100 mg PO DAILY [facility] Last Admin: 04/17/17 09:08 Dose: 100 mg Pneumococcal Polyvalent Vaccine (Pneumovax 23 Vaccine) 0.5 ml IM .ONCE ONE Stop: 04/18/17 10:01 Rosuvastatin Calcium (Crestor) 10 mg PO HS [facility] Last Admin: 04/17/17 22:16 Dose: 10 mg - Labs Labs: 04/17/17 08:12 04/17/17 08:12 PT 12.0 SECONDS (9.7-12.2) 04/15/17 13:43 INR 1.1 04/15/17 13:43 APTT 28 SECONDS (21-34) 04/15/17 13:43 Assessment and Plan - Assessment and Plan (Free Text) Assessment: 1. CVA/ TIA, ECHO: LVH, Normal EF 2. History of Alzheimer 04/16: According to the and family at bedside there is dementia however not severe. They explain that at her baseline she walks, talks, and still has a fair amount performing of ADLs. Currently this morning more awake, alert, but confused 3. Hx of Hyperlipiedemeia ASA, Crestor 4. Hx of DM 04/16: As of this morning the accuchecks are not recorded yet, I need to talk to someone. Also continue on the SSI and ARB, Statin, ASA -ISS 5. HTN 04/16: Better today. Her HCTZ was held due to the low Na. She is on slow IVF. Systolic BPs are 140s to 150s at this time. Hydralazine as above Losartan 100 daily Coreg 25 bid
[2017-04-18 07:16] LABS: BASO % 0.2 % (0.0-2.0); EOS % 0.1 % (0.0-4.0); HEMATOCRIT 40.6 % (34.0-47.0); LYMPH # 0.9 K/uL (1.0-4.3); LYMPH % 8.2 % (20.0-40.0); MEAN CORPUSCULAR HEMOGLOBIN 30.9 pg (27.0-31.0); MEAN PLATELET VOLUME 8.5 fL (7.2-11.7); MONO # 0.8 K/uL (0.0-0.8); MONO % 6.9 % (0.0-10.0); PLATELET COUNT 172 K/uL (130-400); RED CELL DISTRIBUTION WIDTH 13.7 % (11.5-14.5); WHITE BLOOD COUNT 11.2 K/uL (4.8-10.8)
[2017-04-18 07:17] LABS: CHLORIDE 99 mmol/L (98-107)
[2017-04-18 07:18] LABS: POTASSIUM 3.9 mmol/L (3.6-5.2); SODIUM 130 mmol/L (132-148)
[2017-04-18 07:20] LABS: ALB/GLOB RATIO 1.1 (1.0-2.1); AST/SGOT 14 U/L (14-36); BILIRUBIN,TOTAL 0.9 mg/dL (0.2-1.3); BLOOD UREA NITROGEN 9 mg/dL (7-17); CARBON DIOXIDE 23 mmol/L (22-30); GFR AFRICAN-AMERICAN > 60
[2017-04-18 07:21] LABS: ALKALINE PHOSPHATASE 55 U/L (38-126); ALT/SGPT 16 U/L (9-52); GLUCOSE,RANDOM 250 mg/dL (65-105)
--- NOTE | 2017-04-18 07:28 | CON ---
DATE: 04/16/2017 HISTORY OF PRESENT ILLNESS: This is a 76-year-old female with a past medical history of dem entia, hypertension and heart disease, who came after stroke-like symptoms. Poor historian. The pat ient had weakness and became lethargic and brought into the hospital. PAST MEDICAL HISTORY: Hypertension, heart disease and dementia. PAST SURGICAL HISTORY: surgery. ALLERGIES: No known drug allergy. PHYSICAL EXAMINATION: HEENT: Normocephalic, atraumatic. NECK: Supple. NEUROLOGIC: Awake, oriented to self and place. Cranial nerves II through XII are tested. Pupils eq ual reactive. EOM intact. . Spontaneous movement of all the extremities noted. Deep tendon r eflexes are 1+. ____. Sensory appears intact. Cerebellar and gait deferred. IMPRESSION: Intermittent confusional state, encephalopathy, possibly toxic metabolic and called for a code stroke, and a CAT scan of the head was negative. The patient is going for MRI and MRA. LABORATORY DATA: WBC 9.6, hemoglobin 14.3, hematocrit 42.9, platelets 184. Sodium 124, potassium 3. 9, chloride 85, CO2 of 27, glucose 402, BUN 12 and creatinine 0.6. Workup is in progress. Continue present management. Will followup. Jonathon Desai MD cc: [id number] TT: 04/16/2017 20:34:14 Confirmation # [id number] Dictation # [id number] dn
[2017-04-18] MEDS: (Novolin R) Insulin Human Regular 100 units/ml vial SC SCH ×4 (08:00→21:14)
[2017-04-18 08:21] LABS: NEUTROPHIL 83 % (50-75); REACTIVE LYMPHOCYTES 1 % (0-0); TOTAL CELLS COUNTED 100
[2017-04-18 08:22] LABS: LARGE PLATELETS PRESENT
[2017-04-18] MEDS ORDERED: Pneumococcal 23-Valent Vaccine IM ONE (10:00)
--- NOTE | 2017-04-18 10:52 | VASCLAB ---
PROCEDURE: HISTORY: Carotid stenosis, possible CVA. COMPARISON: None available. TECHNIQUE: Grayscale and duplex Doppler evaluation of the cervical carotid and vertebral arteries were performed. The common carotid, carotid bifurcations and cervical Internal Carotid Artery (ICA) and proximal External Carotid Artery (ECA) were evaluated. The vertebral arteries were evaluated for gross patency and flow direction. Report prepared by Dexter Cali, BS, RVT FINDINGS: RIGHT CAROTID ARTERIES: 1. Common Carotid Artery: No significant focal plaque formation of the right common carotid artery. Maximum Peak Systolic velocity: 77 cm/sec: End-diastolic velocity 13 cm/sec. 2. Carotid Bifurcation: Calcific plaque formation. Maximum Peak Systolic velocity: 56 cm/sec: End-diastolic velocity 9 cm/sec. 3. Internal Carotid Artery: Moderate plaque formation of the right proximal ICA which dose not results in hemodynamically significant stenosis. Plaque description: 3.1. Proximal Segment: Peak systolic velocity 108 cm/sec: End-diastolic velocity 19 cm/sec - % stenosis 0-15% 3.2. Middle Segment: Peak systolic velocity 120 cm/sec: End-diastolic velocity 25 cm/sec - % stenosis 0-15% 3.3. Distal Segment: Peak systolic velocity 78 cm/sec: End-diastolic velocity 17 cm/sec - % stenosis 0-15% 4. External Carotid Artery: No significant focal plaque formation. Peak systolic velocity 277 cm/sec 5. ICA/CCA Ratio: 1.6 LEFT CAROTID ARTERIES: 1. Common Carotid Artery: No significant focal plaque formation of the left common carotid artery. Maximum Peak Systolic velocity: 90 cm/sec: End-diastolic velocity 8 cm/sec. 2. Carotid Bifurcation: Calcific plaque formation. Maximum Peak Systolic velocity: 78 cm/sec: End-diastolic velocity 10 cm/sec. 3. Internal Carotid Artery: Moderate plaque formation of the left proximal ICA which dose not results in hemodynamically significant stenosis. Plaque description: Calcific 3.1. Proximal Segment: Peak systolic velocity 106 cm/sec: End-diastolic velocity 20 cm/sec - % stenosis 0-15% 3.2. Middle Segment: Peak systolic velocity 87 cm/sec: End-diastolic velocity 20 cm/sec - % stenosis 0-15% 3.3. Distal Segment: Peak systolic velocity 112 cm/sec: End-diastolic velocity 23 cm/sec - % stenosis 0-15% 4. External Carotid Artery: No significant focal plaque formation. Peak systolic velocity 189 cm/sec 5. ICA/CCA Ratio: 1.2 VERTEBRAL ARTERIES: 1. Right Vertebral Artery: The right vertebral artery flow direction is antegrade. 2. Left Vertebral Artery: The left vertebral artery flow direction is antegrade. OTHER FINDINGS: 1. Right Brachial Blood pressure: 114 mmHg. 2. Left Brachial Blood pressure: 110 mmHg. IMPRESSION: RIGHT: Duplex scan does not suggest hemodynamically significant stenosis of the right extracranial carotid arteries. LEFT: Duplex scan does not suggest hemodynamically significant stenosis of the left extracranial carotid arteries.
[2017-04-18] MEDS: diltiaZEM 120 mg/24 Hours CD Cap PO SCH (10:56)
--- NOTE | 2017-04-18 11:03 | CARD ---
APPROVED REPORT EKG Measurement Heart [id number] <Conclusion> Normal sinus rhythm Possible Left atrial enlargement Septal infarct, age undetermined Abnormal ECG
--- NOTE | 2017-04-18 11:27 | CP.PCM.PN ---
<Pravin Bryson - Last Filed: 04/18/17 11:27> Subjective - Date & Time of Evaluation Date of Evaluation: 04/18/17 Time of Evaluation: 11:25 - Subjective Subjective: Med progress note. Attending: Dr. Giles Pt seen and examined at bedside. No acute distress. No events overnight. Pt sitting up comfortably and eating. Has no complaints. Denies fevers, chills, vomiting, diarrhea. Objective - Vital Signs/Intake and Output Vital Signs (last 24 hours): Temp Pulse Resp BP Pulse Ox 98 F 95 H 20 150/72 100 04/18/17 07:30 04/18/17 07:30 04/18/17 07:30 04/18/17 11:00 04/18/17 07:32 Intake and Output: 04/18/17 04/18/17 06:59 18:59 Intake Total 920 Output Total 850 Balance 70 - Medications Medications: Current Medications Aspirin (Aspirin Chewable) 81 mg PO DAILY [facility] Last Admin: 04/18/17 11:00 Dose: 81 mg Carvedilol (Coreg) 25 mg PO BID [facility] Last Admin: 04/18/17 11:00 Dose: 25 mg Clopidogrel Bisulfate (Plavix) 75 mg PO DAILY [facility] Last Admin: 04/18/17 10:56 Dose: 75 mg Diltiazem HCl (Cardizem Cd) 120 mg PO DAILY [facility] Last Admin: 04/18/17 10:56 Dose: 120 mg Famotidine (Pepcid) 20 mg IVP Q12 [facility] Last Admin: 04/18/17 11:00 Dose: 20 mg Hydralazine HCl (Apresoline) 10 mg IVP Q6H PRN PRN Reason: Systolic Blood Pressure Last Admin: 04/18/17 04:55 Dose: 10 mg Potassium Chloride 40 meq/ (Sodium Chloride) 1,020 mls @ 50 mls/hr IV .[id number] [facility] Last Admin: 04/18/17 03:07 Dose: 50 mls/hr Insulin Human Regular (Novolin R) 0 unit SC ACHS [facility] PRN Reason: Protocol Last Admin: 04/18/17 08:00 Dose: 2 unit Losartan Potassium (Cozaar) 100 mg PO DAILY [facility] Last Admin: 04/18/17 11:00 Dose: 100 mg Rosuvastatin Calcium (Crestor) 10 mg PO HS [facility] Last Admin: 04/17/17 22:16 Dose: 10 mg - Labs Labs: 04/18/17 06:56 04/18/17 06:56 PT 12.0 SECONDS (9.7-12.2) 04/15/17 13:43 INR 1.1 04/15/17 13:43 APTT 28 SECONDS (21-34) 04/15/17 13:43 - Constitutional Appears: Non-toxic, No Acute Distress - Head Exam Head Exam: ATRAUMATIC, NORMAL INSPECTION, NORMOCEPHALIC - Eye Exam Eye Exam: EOMI - ENT Exam ENT Exam: Mucous Membranes Moist - Neck Exam Neck Exam: Full ROM, Normal Inspection - Respiratory Exam Respiratory Exam: NORMAL BREATHING PATTERN. absent: Respiratory Distress - Cardiovascular Exam Cardiovascular Exam: +S1, +S2 - GI/Abdominal Exam GI & Abdominal Exam: Soft, Normal Bowel Sounds. absent: Tenderness - Extremities Exam Extremities Exam: Normal Inspection - Neurological Exam Neurological Exam: Alert, Awake - Psychiatric Exam Psychiatric exam: Normal Affect, Normal Mood - Skin Skin Exam: Dry, Intact, Normal Color, Warm Assessment and Plan - Assessment and Plan (Free Text) Assessment: 1. 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 MRI report pending. Continue asa 81 daily and plavix 75 daily. Also on NS 50 cc/hr with KCL 04/17: We are still pending the MRI, we are trying to get in touch with family. Change medications to PO. She is very talkative. On a pureed diet and nectar thick liquids at the moment. I'm curious to see if she will cooperate for PT or not 04/16: The initial head CT w/o contrast in the ER was negative. When seen in the ER she did not pass swallow eval and was very somnolent, confused, she said yes to every question I asked. NGT x 2 but she pulled it out again this morning. She is now much more awake and alert. Will re-order swallow evaluation. ASA, Statin, and also hydralzine IV if > 160 systolic. Currently pending on MRI, echo was done but still pending read. Her cardiac enzymes have been negative. She does have a cardiac history including being on Plavix and also a chest scar suggesting either CABG or valve replacement - however the does not know this and the PMD explains this is a new patient to him. She has a traylor placed on 04/15 2. History of Alzheimer 04/18: pt sitting up, talkative 04/16: According to the and family at bedside there is dementia however not severe. They explain that at her baseline she walks, talks, and still has a fair amount performing of ADLs. Currently this morning more awake, alert, but confused 3. Hx of Hyperlipiedemeia ASA, Crestor 4. Hx of DM 04/18: continue accuchecks and ISS 04/16: As of this morning the accuchecks are not recorded yet, I need to talk to someone. Also continue on the SSI and ARB, Statin, ASA -ISS 5. HTN 04/18 continue coreg bid and cardizem 120 daily. continue hydralazine 10 mg q 6 prn. continue losartan 100 daily. 04/17: Systolic in the 120s and 130s today 04/16: Better today. Her HCTZ was held due to the low Na. She is on slow IVF. Systolic BPs are 140s to 150s at this time. Hydralazine as above Losartan 100 daily Coreg 25 bid 6. Prophylactic measures continue pepcid 20 q [address] Giles <Medhat Giles - Last Filed: 04/18/17 17:35> Objective - Vital Signs/Intake and Output Vital Signs (last 24 hours): Temp Pulse Resp BP Pulse Ox 97.5 F L 95 H 20 177/90 H 97 04/18/17 15:00 04/18/17 15:00 04/18/17 15:00 04/18/17 17:25 04/18/17 15:00 Intake and Output: 04/18/17 04/18/17 06:59 18:59 Intake Total 920 Output Total 850 Balance 70 - Medications Medications: Current Medications Aspirin (Aspirin Chewable) 81 mg PO DAILY [facility] Last Admin: 04/18/17 11:00 Dose: 81 mg Carvedilol (Coreg) 25 mg PO BID [facility] Last Admin: 04/18/17 17:25 Dose: 25 mg Clopidogrel Bisulfate (Plavix) 75 mg PO DAILY [facility] Last Admin: 04/18/17 10:56 Dose: 75 mg Diltiazem HCl (Cardizem Cd) 120 mg PO DAILY [facility] Last Admin: 04/18/17 10:56 Dose: 120 mg Famotidine (Pepcid) 20 mg IVP Q12 [facility] Last Admin: 04/18/17 11:00 Dose: 20 mg Hydralazine HCl (Apresoline) 10 mg IVP Q6H PRN PRN Reason: Systolic Blood Pressure Last Admin: 04/18/17 04:55 Dose: 10 mg Potassium Chloride 40 meq/ (Sodium Chloride) 1,020 mls @ 50 mls/hr IV .[id number] [facility] Last Admin: 04/18/17 03:07 Dose: 50 mls/hr Insulin Human Regular (Novolin R) 0 unit SC ACHS [facility] PRN Reason: Protocol Last Admin: 04/18/17 17:24 Dose: 2 unit Losartan Potassium (Cozaar) 100 mg PO DAILY [facility] Last Admin: 04/18/17 11:00 Dose: 100 mg Rosuvastatin Calcium (Crestor) 10 mg PO HS [facility] Last Admin: 04/17/17 22:16 Dose: 10 mg - Labs Labs: 04/18/17 06:56 04/18/17 06:56 PT 12.0 SECONDS (9.7-12.2) 04/15/17 13:43 INR 1.1 04/15/17 13:43 APTT 28 SECONDS (21-34) 04/15/17 13:43 Attending/Attestation - Attestation I have personally seen and examined this patient.: Yes I have fully participated in the care of the patient.: Yes I have reviewed all pertinent clinical information, including history, physical exam and plan: Yes Notes (Text): 04/18/17 17:31 Medical Attending: Patient was seen and examined by me. Agree with the above note by the resident. The patient was more awake and alert today. Talkative, however history of dementia at baseline - not always following commands. MRI later returned and I was notified there maybe a septic emboli effect comming from somewhere and the report suggest maybe a cardiac origin. The patient had an echo that was ok, she may need a IGOR now considering the MRI findings. Will need to clarify with cardiology thank you Medhat Giles
--- NOTE | 2017-04-18 11:34 | MRI ---
PROCEDURE: MRI of the brain dated 04/18/2017. HISTORY: r/o stroke COMPARISON: Comparison made with CT scan of the brain dated 04/15/2017 TECHNIQUE: Multiplanar, multisequence MR images of the brain were obtained without intravenous contrast enhancement. FINDINGS: HEMORRHAGE: None The current study reveals DWI: There are multiple small foci of restricted diffusion seen scattered about the right and to a lesser degree left cerebral hemispheres consistent with acute/subacute infarcts. Bilaterality suggest a shower of emboli arising from either the level of the aortic arch are cardiac bowels. Clinical correlation recommended. BRAIN PARENCHYMA: Mild chronic periventricular white matter ischemic changes M bilateral basal nuclei lacunar type infarcts. Moderate generalized volume loss. VENTRICLES: No evidence of obstructive hydrocephalus. CRANIUM: Unremarkable. ORBITS: Orbits and contents grossly unremarkable. PARANASAL SINUSES/MASTOIDS: Clear VASCULAR SYSTEM: Visualized major vascular flow voids at skull base appear patent. OTHER FINDINGS: None. IMPRESSION: Limited motion degraded study. There are multiple foci of restricted diffusion scattered about both cerebral hemispheres right greater than left. Findings consistent with a shower of emboli of possibly or arising from the aortic arch or cardiac valve of. No pivot 6 tower Nurse Ramrup informed of these findings at approximately 11:15 p.m. with written down and read back verification. Mild chronic white matter and scattered bilateral basal nuclei lacunar type infarcts
--- NOTE | 2017-04-18 21:01 | CP.PCM.PN ---
Subjective - Date & Time of Evaluation Date of Evaluation: 04/18/17 Time of Evaluation: 16:00 - Subjective Subjective: Pt seen and examined. MRI suspicious for showering emboli For IGOR tomorrow Physical Examination Constitutional Appears: Non-toxic, No Acute Distress - Head Exam Head Exam: ATRAUMATIC, NORMAL INSPECTION, NORMOCEPHALIC - Eye Exam Eye Exam: EOMI - ENT Exam ENT Exam: Mucous Membranes Moist - Neck Exam Neck Exam: Full ROM, Normal Inspection - Respiratory Exam Respiratory Exam: NORMAL BREATHING PATTERN. absent: Respiratory Distress - Cardiovascular Exam Cardiovascular Exam: +S1, +S2 - GI/Abdominal Exam GI & Abdominal Exam: Soft, Normal Bowel Sounds. absent: Tenderness - Extremities Exam Extremities Exam: Normal Inspection - Neurological Exam Neurological Exam: Alert, Awake - Psychiatric Exam Psychiatric exam: Normal Affect, Normal Mood - Skin Skin Exam: Dry, Intact, Normal Color, Warm Objective - Vital Signs/Intake and Output Vital Signs (last 24 hours): Temp Pulse Resp BP Pulse Ox 97.5 F L 95 H 20 177/90 H 97 04/18/17 15:00 04/18/17 15:00 04/18/17 15:00 04/18/17 17:25 04/18/17 15:00 - Medications Medications: Current Medications Aspirin (Aspirin Chewable) 81 mg PO DAILY [facility] Last Admin: 04/18/17 11:00 Dose: 81 mg Carvedilol (Coreg) 25 mg PO BID [facility] Last Admin: 04/18/17 17:25 Dose: 25 mg Clopidogrel Bisulfate (Plavix) 75 mg PO DAILY [facility] Last Admin: 04/18/17 10:56 Dose: 75 mg Diltiazem HCl (Cardizem Cd) 120 mg PO DAILY [facility] Last Admin: 04/18/17 10:56 Dose: 120 mg Famotidine (Pepcid) 20 mg IVP Q12 [facility] Last Admin: 04/18/17 11:00 Dose: 20 mg Hydralazine HCl (Apresoline) 10 mg IVP Q6H PRN PRN Reason: Systolic Blood Pressure Last Admin: 04/18/17 04:55 Dose: 10 mg Potassium Chloride 40 meq/ (Sodium Chloride) 1,020 mls @ 50 mls/hr IV .[id number] [facility] Last Admin: 04/18/17 03:07 Dose: 50 mls/hr Insulin Human Regular (Novolin R) 0 unit SC ACHS [facility] PRN Reason: Protocol Last Admin: 04/18/17 17:24 Dose: 2 unit Losartan Potassium (Cozaar) 100 mg PO DAILY [facility] Last Admin: 04/18/17 11:00 Dose: 100 mg Rosuvastatin Calcium (Crestor) 10 mg PO HS [facility] Last Admin: 04/17/17 22:16 Dose: 10 mg - Labs Labs: 04/18/17 06:56 04/18/17 06:56 PT 12.0 SECONDS (9.7-12.2) 04/15/17 13:43 INR 1.1 04/15/17 13:43 APTT 28 SECONDS (21-34) 04/15/17 13:43 Assessment and Plan - Assessment and Plan (Free Text) Assessment: 1. CVA/ TIA, MRI suspecious for showering emboli For IGOR tomorrow 2. History of Alzheimer 04/18: pt sitting up, talkative 04/16: According to the and family at bedside there is dementia however not severe. They explain that at her baseline she walks, talks, and still has a fair amount performing of ADLs. Currently this morning more awake, alert, but confused 3. Hx of Hyperlipiedemeia ASA, Crestor 4. Hx of DM 04/18: continue accuchecks and ISS 04/16: As of this morning the accuchecks are not recorded yet, I need to talk to someone. Also continue on the SSI and ARB, Statin, ASA -ISS 5. HTN 04/18 continue coreg bid and cardizem 120 daily. continue hydralazine 10 mg q 6 prn. continue losartan 100 daily. 04/17: Systolic in the 120s and 130s today 04/16: Better today. Her HCTZ was held due to the low Na. She is on slow IVF. Systolic BPs are 140s to 150s at this time. Hydralazine as above Losartan 100 daily Coreg 25 bid 6. Prophylactic measures continue pepcid 20 q 12 SCDs
[2017-04-19 07:33] LABS: BASO % 0.2 % (0.0-2.0); CHLORIDE 95 mmol/L (98-107); HEMATOCRIT 44.6 % (34.0-47.0); LYMPH # 0.8 K/uL (1.0-4.3); LYMPH % 5.7 % (20.0-40.0); MEAN CELL VOLUME 90.8 fL (81.0-99.0); MEAN CORPUSCULAR HEMOGLOBIN 30.6 pg (27.0-31.0); MEAN CORPUSCULAR HGB CONC 33.7 g/dL (33.0-37.0); MEAN PLATELET VOLUME 8.9 fL (7.2-11.7); MONO # 0.8 K/uL (0.0-0.8); MONO % 5.7 % (0.0-10.0); NRBC % 0.1 % (0.0-2.0); PLATELET COUNT 192 K/uL (130-400); POTASSIUM 4.6 mmol/L (3.6-5.2); RED CELL DISTRIBUTION WIDTH 13.4 % (11.5-14.5); SODIUM 131 mmol/L (132-148); WHITE BLOOD COUNT 13.3 K/uL (4.8-10.8)
[2017-04-19 07:35] LABS: BILIRUBIN,TOTAL 0.8 mg/dL (0.2-1.3); CARBON DIOXIDE 26 mmol/L (22-30); GFR AFRICAN-AMERICAN > 60
[2017-04-19 07:36] LABS: ALB/GLOB RATIO 1.1 (1.0-2.1); ALKALINE PHOSPHATASE 72 U/L (38-126); ALT/SGPT 14 U/L (9-52); AST/SGOT 17 U/L (14-36); BLOOD UREA NITROGEN 9 mg/dL (7-17); CALCIUM 8.3 mg/dl (8.6-10.4); GLUCOSE,RANDOM 282 mg/dL (65-105); MAGNESIUM 1.4 mg/dL (1.6-2.3); TOTAL PROTEIN 6.6 g/dL (6.3-8.3)
[2017-04-19] MEDS: (Novolin R) Insulin Human Regular 100 units/ml vial SC SCH ×4 (08:22→21:35)
[2017-04-19 09:40] LABS: NEUTROPHIL 88 % (50-75); TOTAL CELLS COUNTED 100
[2017-04-19] MEDS ORDERED: Propofol 10 mg/ml Inj (20 ML) ONE (09:52)
[2017-04-19] MEDS: Magnesium Sulfate 1 gm in D5W 1 GM/100 ML BAG IVPB SCH ×2 (10:00→11:00)
[2017-04-19] MEDS ORDERED: Esmolol 100 mg/10ml Inj IV ONE (10:01)
--- NOTE | 2017-04-19 11:36 | CP.PCM.PCO ---
Assessment & Plan - Assessment and Plan (Free Text) Assessment: NEURO COMMUNICATION NOTE: MRI REVIEWED REMOTELY. B/L SMALL EMBOLIC INFARCTS. WILL NEED IGOR, ANTICOAGULATION PER CARDIOLOGY. PT/OT LAVON GONZALEZ
[2017-04-19] MEDS: diltiaZEM 120 mg/24 Hours CD Cap PO SCH (12:10)
--- NOTE | 2017-04-19 16:03 | CP.PCM.PN ---
<Pravin Bryson - Last Filed: 04/19/17 16:04> Subjective - Date & Time of Evaluation Date of Evaluation: 04/19/17 Time of Evaluation: 16:00 - Subjective Subjective: Medicine progress note. Attending: Dr. Briceño Pt seen and examined at bedside. No acute distress. Pending ELA report. Will f/ u with Dr. Daniels. Pt resuming diet. Objective - Vital Signs/Intake and Output Vital Signs (last 24 hours): Temp Pulse Resp BP Pulse Ox 97.9 F 101 H 20 152/70 H 98 04/19/17 12:17 04/19/17 12:17 04/19/17 12:17 04/19/17 12:17 04/19/17 12:17 Intake and Output: 04/19/17 04/19/17 06:59 18:59 Intake Total 640 Output Total 1400 Balance -760 - Medications Medications: Current Medications Aspirin (Aspirin Chewable) 81 mg PO DAILY [facility] Last Admin: 04/19/17 12:10 Dose: 81 mg Carvedilol (Coreg) 25 mg PO BID [facility] Last Admin: 04/19/17 12:10 Dose: 25 mg Clopidogrel Bisulfate (Plavix) 75 mg PO DAILY [facility] Last Admin: 04/19/17 12:10 Dose: 75 mg Diltiazem HCl (Cardizem Cd) 120 mg PO DAILY [facility] Last Admin: 04/19/17 12:10 Dose: 120 mg Famotidine (Pepcid) 20 mg IVP Q12 [facility] Last Admin: 04/19/17 12:10 Dose: 20 mg Hydralazine HCl (Apresoline) 10 mg IVP Q6H PRN PRN Reason: Systolic Blood Pressure Last Admin: 04/19/17 04:28 Dose: 10 mg Insulin Human Regular (Novolin R) 0 unit SC ACHS [facility] PRN Reason: Protocol Last Admin: 04/19/17 11:30 Dose: Not Given Losartan Potassium (Cozaar) 100 mg PO DAILY [facility] Last Admin: 04/19/17 12:10 Dose: 100 mg Rosuvastatin Calcium (Crestor) 10 mg PO HS [facility] Last Admin: 04/18/17 21:29 Dose: 10 mg - Labs Labs: 04/19/17 07:08 04/19/17 07:08 PT 12.0 SECONDS (9.7-12.2) 04/15/17 13:43 INR 1.1 04/15/17 13:43 APTT 28 SECONDS (21-34) 04/15/17 13:43 - Constitutional Appears: Non-toxic, No Acute Distress - Head Exam Head Exam: ATRAUMATIC, NORMAL INSPECTION, NORMOCEPHALIC - Eye Exam Eye Exam: EOMI - ENT Exam ENT Exam: Mucous Membranes Moist - Neck Exam Neck Exam: Full ROM, Normal Inspection - Respiratory Exam Respiratory Exam: NORMAL BREATHING PATTERN. absent: Respiratory Distress - Cardiovascular Exam Cardiovascular Exam: +S1, +S2 - GI/Abdominal Exam GI & Abdominal Exam: Soft, Normal Bowel Sounds. absent: Tenderness - Extremities Exam Extremities Exam: Full ROM, Normal Inspection - Neurological Exam Neurological Exam: Altered - Psychiatric Exam Psychiatric exam: Flat Affect - Skin Skin Exam: Dry, Intact, Normal Color, Warm Assessment and Plan - Assessment and Plan (Free Text) Assessment: 1. 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 continue asa 81 daily and plavix 75 daily. 04/18: pt sitting up and talkative. MRI report pending. Continue asa 81 daily and plavix 75 daily. Also on NS 50 cc/hr with KCL 04/17: We are still pending the MRI, we are trying to get in touch with family. Change medications to PO. She is very talkative. On a pureed diet and nectar thick liquids at the moment. I'm curious to see if she will cooperate for PT or not 04/16: The initial head CT w/o contrast in the ER was negative. When seen in the ER she did not pass swallow eval and was very somnolent, confused, she said yes to every question I asked. NGT x 2 but she pulled it out again this morning. She is now much more awake and alert. Will re-order swallow evaluation. ASA, Statin, and also hydralzine IV if > 160 systolic. Currently pending on MRI, echo was done but still pending read. Her cardiac enzymes have been negative. She does have a cardiac history including being on Plavix and also a chest scar suggesting either CABG or valve replacement - however the does not know this and the PMD explains this is a new patient to him. She has a traylor placed on 5/19>>> will discontinue 2. History of Alzheimer 04/19: pt continues to sit up, and speak 04/18: pt sitting up, talkative 04/16: According to the and family at bedside there is dementia however not severe. They explain that at her baseline she walks, talks, and still has a fair amount performing of ADLs. Currently this morning more awake, alert, but confused 3. Hx of Hyperlipidemia ASA, Crestor 4. Hx of DM 04/19: continue ISS 04/18: continue accuchecks and ISS 04/16: As of this morning the accuchecks are not recorded yet, I need to talk to someone. Also continue on the SSI and ARB, Statin, ASA -ISS 5. HTN 04/18 continue coreg bid and cardizem 120 daily. continue hydralazine 10 mg q 6 prn. continue losartan 100 daily. 04/17: Systolic in the 120s and 130s today 04/16: Better today. Her HCTZ was held due to the low Na. She is on slow IVF. Systolic BPs are 140s to 150s at this time. Hydralazine as above Losartan 100 daily Coreg 25 bid 6. Prophylactic measures continue pepcid 20 q [address] Briceño <David Briceño - Last Filed: 05/27/17 17:23> Objective - Vital Signs/Intake and Output Vital Signs (last 24 hours): Temp Pulse Resp BP Pulse Ox 98.4 F 89 20 147/70 96 04/22/17 08:12 04/22/17 08:12 04/22/17 08:12 04/22/17 09:23 04/22/17 08:12 - Labs Labs: 04/22/17 07:26 04/22/17 07:26 PT 11.9 SECONDS (9.7-12.2) 04/22/17 07:26 INR 1.0 04/22/17 07:26 APTT 30 SECONDS (21-34) 04/20/17 16:50 Attending/Attestation - Attestation I have personally seen and examined this patient.: Yes I have fully participated in the care of the patient.: Yes I have reviewed all pertinent clinical information, including history, physical exam and plan: Yes Notes (Text): CVA/ TIA, not TPA per neurology History of Alzheimer
--- NOTE | 2017-04-19 21:24 | PN ---
DATE: 04/19/2017 CHIEF COMPLAINT: Followup for altered mental status. SUBJECTIVE: The patient seen and examined at bedside. The patient came initially in the hospital be cause of altered mental status, has baseline dementia, dyslipidemia and diabetes. She has an A1c of 11.6 indicating poorly controlled diabetes. She had an MRI of the brain on 04/18/2017 showing multipl e foci, restricted diffusion, scattered throughout both cerebral hemispheres, right greater than left , finding consistent with shower of the emboli, likely from the aortic arch or cardiac valves. Cardi ology is on board. The patient had a IGOR, report pending. At this time, I feel like the patient julio césar l need to be on anticoagulation, at least of Coumadin, given that she is demented rather than novel a nticoagulants, so we can monitor her INR and also it is a good reversal since she could be a fall ris k. She active for her ADLs. PAST MEDICAL HISTORY: Diabetes, dementia, hypertension, dyslipidemia. REVIEW OF SYSTEMS: A 14-point review of systems is negative except for the HPI. ALLERGIES: No known drug allergies. SOCIAL HISTORY: No illicit drug use, smoking, or ETOH abuse. MEDICATIONS: Reviewed via the nurse's reconciliation sheet. FAMILY HISTORY: Noncontributory. PHYSICAL EXAMINATION: VITAL SIGNS: Temperature 97.8, pulse rate 90, blood pressure 179/89, respiratory rate 20, oxygen sat uration 99% on room air. GENERAL: The patient is sitting up in bed, no acute distress. HEENT: Atraumatic, normocephalic. PERRLA. Extraocular muscles intact. NECK: Supple, no JVD, no adenopathy noted. LUNGS: Clear to auscultation. No adventitious sounds. HEART: S1, S2, normal rate and rhythm. No murmurs, rubs, or gallops. ABDOMEN: Soft, nontender, positive bowel sounds present. EXTREMITIES: No clubbing, no cyanosis. Peripheral pulses 2+ felt bilaterally. NEUROLOGIC: The patient is alert, oriented to person and place, not much of month or year. Recall a t 5 minutes is 0/3. Poor attention span, slow thought process. Cranial nerves II through XII are int act. MOTOR: Moves all extremities equally. No pronator drift seen. SENSORY: Light touch, pinprick is decreased up to the calves bilaterally. Decreased vibration of th e toes. Toes are upgoing bilaterally. DEEP TENDON REFLEXES: 1+ throughout and absent at the ankles. COORDINATION: [id number] intact. GAIT: Deferred for now. LABORATORY DATA: Sodium is 131, potassium 4.6, chloride 95, carbon dioxide 26, BUN of 9, creatinine 0.6. Random glucose is 279, A1c is 11.6. ASSESSMENT AND PLAN: This is a 76-year-old woman with history of hypertension, dyslipidemia, dementi a, diabetes, hypertension who presented with altered mental status, has baseline dementia, was found to be confused and therefore she was evaluated for stroke. She also was hyperglycemic as well and aguilera d metabolic derangements. She was found to have scattered restricted diffusion foci of cerebral infa rcts in both cerebral hemispheres, right greater than left consistent with embolic type of infarct. Her altered mental status is secondary to embolic infarctions bilaterally, likely from a cardiac sour ce and superimposed underlying metabolic derangements and hyperglycemic accelerations. At this time, recommend: 1. Diabetic diet, diabetic education given that her A1c is 11.6 and poorly controlled diabetes. Nee ds to have better diabetic control. Please adjust her medications. 2. Recommend aspirin and Plavix for now, but can discontinue Plavix and continue aspirin and possibl y Coumadin as per cardiology. If cardiology clears given that she has an embolic source ____ IGOR, re port pending. Follow up with cardiology. 3. Needs acute, subacute rehab and monitor electrolytes and correct accordingly. Thank you for this followup. Continue current present medical management. Yg Desai MD cc: [id number] TT: 04/19/2017 21:24:10 Confirmation # [id number] Dictation # [id number] [email or web address]
--- NOTE | 2017-04-20 01:41 | CP.PCM.PN ---
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 Recommend ASA 81, Plavix 75 and Aggressive statins Objective - Vital Signs/Intake and Output Vital Signs (last 24 hours): Temp Pulse Resp BP Pulse Ox 97.8 F 101 H 20 120/73 99 04/19/17 15:00 04/19/17 23:30 04/19/17 15:00 04/19/17 18:29 04/19/17 15:00 Intake and Output: 04/19/17 04/20/17 18:59 06:59 Intake Total 470 Output Total 1500 350 Balance -1500 120 - Medications Medications: Current Medications Aspirin (Aspirin Chewable) 81 mg PO DAILY [facility] Last Admin: 04/19/17 12:10 Dose: 81 mg Carvedilol (Coreg) 25 mg PO BID [facility] Last Admin: 04/19/17 17:05 Dose: 25 mg Clopidogrel Bisulfate (Plavix) 75 mg PO DAILY [facility] Last Admin: 04/19/17 12:10 Dose: 75 mg Diltiazem HCl (Cardizem Cd) 120 mg PO DAILY [facility] Last Admin: 04/19/17 12:10 Dose: 120 mg Famotidine (Pepcid) 20 mg IVP Q12 [facility] Last Admin: 04/19/17 21:34 Dose: 20 mg Hydralazine HCl (Apresoline) 10 mg IVP Q6H PRN PRN Reason: Systolic Blood Pressure Last Admin: 04/19/17 04:28 Dose: 10 mg Insulin Human Regular (Novolin R) 0 unit SC [facility] PRN Reason: Protocol Last Admin: 04/19/17 21:35 Dose: Not Given Losartan Potassium (Cozaar) 100 mg PO DAILY [facility] Last Admin: 04/19/17 12:10 Dose: 100 mg Rosuvastatin Calcium (Crestor) 10 mg PO HS [facility] Last Admin: 04/19/17 21:34 Dose: 10 mg - Labs Labs: 04/19/17 07:08 04/19/17 07:08 PT 12.0 SECONDS (9.7-12.2) 04/15/17 13:43 INR 1.1 04/15/17 13:43 APTT 28 SECONDS (21-34) 04/15/17 13:43
[2017-04-20 06:18] LABS: BASO % 0.2 % (0.0-2.0); EOS % 0.1 % (0.0-4.0); HEMATOCRIT 41.3 % (34.0-47.0); LYMPH % 10.9 % (20.0-40.0); MEAN CELL VOLUME 90.7 fL (81.0-99.0); MEAN CORPUSCULAR HEMOGLOBIN 30.4 pg (27.0-31.0); MEAN CORPUSCULAR HGB CONC 33.5 g/dL (33.0-37.0); MEAN PLATELET VOLUME 8.7 fL (7.2-11.7); MONO # 0.6 K/uL (0.0-0.8); MONO % 6.8 % (0.0-10.0); NRBC % 0.1 % (0.0-2.0); RED CELL DISTRIBUTION WIDTH 13.5 % (11.5-14.5); WHITE BLOOD COUNT 8.8 K/uL (4.8-10.8)
[2017-04-20 06:30] LABS: CHLORIDE 95 mmol/L (98-107)
[2017-04-20 06:31] LABS: POTASSIUM 4.2 mmol/L (3.6-5.2); SODIUM 131 mmol/L (132-148)
[2017-04-20 06:33] LABS: ALKALINE PHOSPHATASE 59 U/L (38-126); AST/SGOT 13 U/L (14-36); BILIRUBIN,TOTAL 0.8 mg/dL (0.2-1.3); CARBON DIOXIDE 26 mmol/L (22-30); GFR AFRICAN-AMERICAN > 60; TOTAL PROTEIN 6.1 g/dL (6.3-8.3)
[2017-04-20 06:34] LABS: ALT/SGPT 15 U/L (9-52); BLOOD UREA NITROGEN 13 mg/dL (7-17); CALCIUM 8.4 mg/dl (8.6-10.4); GLUCOSE,RANDOM 253 mg/dL (65-105); MAGNESIUM 1.4 mg/dL (1.6-2.3); PHOSPHOROUS 3.7 mg/dL (2.5-4.5)
[2017-04-20] MEDS: Magnesium Sulfate 1 gm in D5W 1 GM/100 ML BAG IVPB SCH ×2 (07:40→08:20)
[2017-04-20] MEDS: (Novolin R) Insulin Human Regular 100 units/ml vial SC SCH ×4 (08:10→21:37)
[2017-04-20] MEDS: diltiaZEM 120 mg/24 Hours CD Cap PO SCH (09:07)
--- NOTE | 2017-04-20 11:17 | CP.PCM.PN ---
<Karma Wiley V - Last Filed: 04/20/17 16:05> Objective - Vital Signs/Intake and Output Vital Signs (last 24 hours): Temp Pulse Resp BP Pulse Ox 97.7 F 99 H 20 145/79 97 04/20/17 08:03 04/20/17 08:03 04/20/17 08:03 04/20/17 09:07 04/20/17 08:03 Intake and Output: 04/20/17 04/20/17 06:59 18:59 Intake Total 470 Output Total 350 Balance 120 - Medications Medications: Current Medications Aspirin (Aspirin Chewable) 81 mg PO DAILY [facility] Last Admin: 04/20/17 09:07 Dose: 81 mg Carvedilol (Coreg) 25 mg PO BID [facility] Last Admin: 04/20/17 09:07 Dose: 25 mg Clopidogrel Bisulfate (Plavix) 75 mg PO DAILY [facility] Last Admin: 04/20/17 09:06 Dose: 75 mg Diltiazem HCl (Cardizem Cd) 120 mg PO DAILY [facility] Last Admin: 04/20/17 09:07 Dose: 120 mg Famotidine (Pepcid) 20 mg IVP Q12 [facility] Last Admin: 04/20/17 09:06 Dose: 20 mg Hydralazine HCl (Apresoline) 25 mg IVP Q6H PRN PRN Reason: Systolic Blood Pressure Insulin Human Regular (Novolin R) 0 unit SC ACHS [facility] PRN Reason: Protocol Last Admin: 04/20/17 12:00 Dose: 6 unit Losartan Potassium (Cozaar) 100 mg PO DAILY [facility] Last Admin: 04/20/17 09:07 Dose: 100 mg Metformin HCl (Glucophage) 1,000 mg PO BIDCC [facility] Last Admin: 04/20/17 12:00 Dose: 1,000 mg Rosuvastatin Calcium (Crestor) 10 mg PO HS [facility] Last Admin: 04/19/17 21:34 Dose: 10 mg - Labs Labs: 04/20/17 06:03 04/20/17 06:03 PT 12.0 SECONDS (9.7-12.2) 04/15/17 13:43 INR 1.1 04/15/17 13:43 APTT 28 SECONDS (21-34) 04/15/17 13:43 Attending/Attestation - Attestation I have personally seen and examined this patient.: Yes I have fully participated in the care of the patient.: Yes I have reviewed all pertinent clinical information, including history, physical exam and plan: Yes Notes (Text): Patient seen, examined, and case discussed with day-time resident. 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 Discussed with both cardiology, Dr Daniels and neurology, Dr. Zoie Desai (Covering Dr. Arian Desai), recommended anticoagulation. Per neurology, recommending for Coumadin instead of NOAC given age and cognition and in light of Brain MRI opposed to Aspirin and Plavix. Will started theraputic Lovenox to Coumadin. Patient's sugars are uncontrolled given [id number]; will start Metformin 1000mg PO bid. Start hydralazine 25mg PO q 6hours for blood pressure control. Pending occupational eval 1. CVA * likely cardiac embolic source * Neurology (Dr. Arian Desai) on consult * Cardiology (Dr. Daniels) on consult * Patient is not a TPA candidate per admission given high NIHSS scale * Will discontinue Aspirin/Plavix to start bridge from therapuetic Lovenox to Coumadin-->discussed with cardiology and neurology * Brain MRI (04/18/17): multiple foci of restricted diffusion scattered about both cerebral hemispheres right greater than left. Shower of emoboli of possibly or arising from the aortic arch or cardiac valve; mild chronic white matter and scattered bilateral basal nuclei lacunar type infarcts * Echocardiogram (04/17/17): left ventricle is normal size, left ventricular ejection fraction is within the normal range. 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 Obrien) for recommendation, lambles excrescences for any further recommendation; limited literature review available * Head CT (04/17/17): no intracranial hemorrhage. No intracranial mass or evidence of acute infarct. Mild involutional change consistent with age * Cartoid Doppler (04/15/17): normal * Ordered for hypercoaguability workup * For blood pressure control: Coreg 25mg PO bid, Cardizem CD 120mg PO daily, Cozaar 100mg PO daily, start Hydralazine 25mg PO Q6 hours * Crestor 10mg PO qHS * Pending coagulation (baseline INR) prior to starting therapuetic Lovenox/ Coumadin bridge 2. Uncontrolled hypertension * For blood pressure control: Coreg 25mg PO bid, Cardizem CD 120mg PO daily, Cozaar 100mg PO daily, start Hydralazine 25mg PO Q6 hours * Monitor vital signs 3. Uncontrolled diabetes * [id number]: 11.6 * Accuchecks QAC and HS * Start Metformin 1000mg PO bid * heart healthy, carb consistent diet 4. Alzheimer's disease * Patient is currently not on any dementia type medications * Patient is awake, alert, oriented X3, NAD, conversant in hungarian, and very pleasant 5. Lambles excrescences * Discussed with cardiology/neurology, recommend for anticoagulation * Per neurology, given patient's age and cognition, recommend for Coumadin * Noted on EAL exam * CT surgery (Dr. obrien) for further recommendations 6. Dyslipidemia * Crestor 10mg PO qHS * elevated cholestrol, LDL; within TG and HDL 7. Electrolyte imbalance * Monitor and replete 8. Prophylactic measure * pepcid 20mg IV Q 12hours * Patient is currently on Aspirin/Plavix-->will bridge to therapuetic lovenox to Coumadin * Physical therapy eval: ARU/LORRAINE * Occupational eval * Acute rehab/Subacute rehab eval Disposition * Patient to start therapeutic Lovenox to Coumadin bridge for anticoagulation in light of ELA findings. * Occupational therapy evaluation * Blood pressure control and sugar control * Follow-up with case management regarding placement; note: PMD: Dr Michael if able to accommodate for discharge planning.. <Pravin Bryson - Last Filed: 04/20/17 17:20> Subjective - Date & Time of Evaluation Date of Evaluation: 04/20/17 Time of Evaluation: 11:15 - Subjective Subjective: Med progress note. Attending: Dr. Wiley Pt seen and examined at bedside. No acute distress. No events overnight. 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 May need to be seen by cardiothoracic sx. Objective - Vital Signs/Intake and Output Vital Signs (last 24 hours): Temp Pulse Resp BP Pulse Ox 97.7 F 99 H 20 145/79 97 04/20/17 08:03 04/20/17 08:03 04/20/17 08:03 04/20/17 09:07 04/20/17 08:03 Intake and Output: 04/20/17 04/20/17 06:59 18:59 Intake Total 470 Output Total 350 Balance 120 - Medications Medications: Current Medications Aspirin (Aspirin Chewable) 81 mg PO DAILY [facility] Last Admin: 04/20/17 09:07 Dose: 81 mg Carvedilol (Coreg) 25 mg PO BID [facility] Last Admin: 04/20/17 09:07 Dose: 25 mg Clopidogrel Bisulfate (Plavix) 75 mg PO DAILY [facility] Last Admin: 04/20/17 09:06 Dose: 75 mg Diltiazem HCl (Cardizem Cd) 120 mg PO DAILY [facility] Last Admin: 04/20/17 09:07 Dose: 120 mg Famotidine (Pepcid) 20 mg IVP Q12 [facility] Last Admin: 04/20/17 09:06 Dose: 20 mg Hydralazine HCl (Apresoline) 25 mg IVP Q6H PRN PRN Reason: Systolic Blood Pressure Insulin Human Regular (Novolin R) 0 unit SC ACHS [facility] PRN Reason: Protocol Losartan Potassium (Cozaar) 100 mg PO DAILY [facility] Last Admin: 04/20/17 09:07 Dose: 100 mg Metformin HCl (Glucophage) 1,000 mg PO BIDCC [facility] Rosuvastatin Calcium (Crestor) 10 mg PO HS [facility] Last Admin: 04/19/17 21:34 Dose: 10 mg - Labs Labs: 04/20/17 06:03 04/20/17 06:03 PT 12.0 SECONDS (9.7-12.2) 04/15/17 13:43 INR 1.1 04/15/17 13:43 APTT 28 SECONDS (21-34) 04/15/17 13:43 - Constitutional Appears: Non-toxic, No Acute Distress - Head Exam Head Exam: ATRAUMATIC, NORMAL INSPECTION, NORMOCEPHALIC - Eye Exam Eye Exam: EOMI - ENT Exam ENT Exam: Mucous Membranes Moist - Neck Exam Neck Exam: Full ROM, Normal Inspection - Respiratory Exam Respiratory Exam: NORMAL BREATHING PATTERN. absent: Respiratory Distress - Cardiovascular Exam Cardiovascular Exam: +S1, +S2 - GI/Abdominal Exam GI & Abdominal Exam: Soft, Normal Bowel Sounds. absent: Tenderness - Extremities Exam Extremities Exam: Full ROM, Normal Inspection - Neurological Exam Neurological Exam: Alert, Awake, CN II-XII Intact, Oriented x3 Neuro motor strength exam: Left Upper Extremity: 4, Right Upper Extremity: 4, Left Lower Extremity: 4, Right Lower Extremity: 4 Additional comments: Pt cooperative with exam, negative babinski, sensation to pain and light touch intact, no facial droop - Psychiatric Exam Psychiatric exam: Normal Affect, Normal Mood - Skin Skin Exam: Dry, Intact, Normal Color, Warm Assessment and Plan - Assessment and Plan (Free Text) Assessment: 1. CVA, not TPA per neurology 04/20: pt is s/p ELA, which shows normal ef, atherosclerotic aorta and Lambl's excresences- will f/u with cardiology recs. Continue asa 81 mg daily, plavix 75 mg daily, crestor 10 mg daily. Neurology does recommend anticoagulation with warfarin and lovenox, not any NOACs. No coagulopathy noted. Will bridge with lovenox and give warfarin tonight. Consult placed with Dr. Obrien, cardiothoracic sx. Brain MRI (04/18/17): multiple foci of restricted diffusion scattered about both cerebral hemispheres right greater than left. Shower of emoboli of possibly or arising from the aortic arch or cardiac valve; mild chronic white matter and scattered bilateral basal nuclei lacunar type infarcts (please see full report) 04/19: pt s/p ela, will f/u with cardio recs. continue asa 81 daily and plavix 75 daily. 04/18: pt sitting up and talkative. MRI report pending. Continue asa 81 daily and plavix 75 daily. Also on NS 50 cc/hr with KCL 04/17: We are still pending the MRI, we are trying to get in touch with family. Change medications to PO. She is very talkative. On a pureed diet and nectar thick liquids at the moment. I'm curious to see if she will cooperate for PT or not 04/16: The initial head CT w/o contrast in the ER was negative. When seen in the ER she did not pass swallow eval and was very somnolent, confused, she said yes to every question I asked. NGT x 2 but she pulled it out again this morning. She is now much more awake and alert. Will re-order swallow evaluation. ASA, Statin, and also hydralzine IV if > 160 systolic. Currently pending on MRI, echo was done but still pending read. Her cardiac enzymes have been negative. She does have a cardiac history including being on Plavix and also a chest scar suggesting either CABG or valve replacement - however the does not know this and the PMD explains this is a new patient to him. She has a traylor placed on 04/15>>> will discontinue 2. History of Alzheimer 04/20: pt talkative, alert, oriented 04/19: pt continues to sit up, and speak 04/18: pt sitting up, talkative 04/16: According to the and family at bedside there is dementia however not severe. They explain that at her baseline she walks, talks, and still has a fair amount performing of ADLs. Currently this morning more awake, alert, but confused 3. Hx of Hyperlipidemia ASA 81 mg daily, Crestor 10 mg daily as above 4. Hx of DM 04/20: pt is poorly controlled, will increase SS to medium dose 04/19: continue ISS 04/18: continue accuchecks and ISS 04/16: As of this morning the accuchecks are not recorded yet, I need to talk to someone. Also continue on the SSI and ARB, Statin, ASA -ISS 5. HTN 04/20: BP will need to be more tightly controlled, will increase hydralazine to 25mg IV q6 hrs, also continue coreg 25 mg bid, cardizem 120 mg daily, losartan 100 mg daily. 04/18 continue coreg bid and cardizem 120 daily. continue hydralazine 10 mg q 6 prn. continue losartan 100 daily. 04/17: Systolic in the 120s and 130s today 04/16: Better today. Her HCTZ was held due to the low Na. She is on slow IVF. Systolic BPs are 140s to 150s at this time. Hydralazine as above Losartan 100 daily Coreg 25 bid 6. Prophylactic measures continue pepcid 20 q [address] Wiley.
--- NOTE | 2017-04-20 16:59 | CP.PCM.CON ---
History of Present Illness - History of Present Illness History of Present Illness: Thoracic Surgery: Dr. Obrien CC: Stroke HPI: 76F w. pmh of Alzheimer's, HTN, HLD, DM, presented to ED on 04/15 w. stroke like symptoms. Per family, pt fainted, was unable to speak, and had difficulty moving lower extremities. This prompted family to call 911. Per family, symptoms lasted approximately 30min. This has never happened before per family. Head CT showed no signs of acute infarct. MRI of brain showed multiple foci of restricted diffusion both cebral hemispheres consistent w. shower emboli. IGOR showed Lambles excrescences on Aortic valve for which Thoracic was consulted. Pt is asymptomatic at time of exam. She denies slurred speech, no blurred vision, no SIGALA/blurred vision, no CP/palpitations, no SOB/cough, no abd pain, no N/V/D, no weakness in extremities, no difficulty ambulating PMH: as above PSH: Cardiac, possible CABG Meds: MAR reviewed NKDA Social: No ETOH, tobacco, drugs Fhx: non-contributory Review of Systems - Review of Systems All systems: reviewed and no additional remarkable complaints except (HPI) Past Patient History - Infectious Disease Hx of Infectious Diseases: None - Tetanus Immunizations Tetanus Immunization: Unknown - Past Medical History & Family History Past Medical History?: Yes Past Family History: Reviewed and not pertinent - Past Social History Smoking Status: Never Smoked Chewing Tobacco Use: No Cigar Use: No Alcohol: None Drugs: Denies Home Situation {Lives}: With Family Domestic Violence: Negative - CARDIAC Hx Atrial Fibrillation: Yes Hx Hypercholesterolemia: Yes Hx Hypertension: Yes - PULMONARY Hx Respiratory Disorders: No - NEUROLOGICAL Hx Neurological Disorder: No - HEENT Hx HEENT Problems: No - RENAL Hx Chronic Kidney Disease: No - ENDOCRINE/METABOLIC Hx Diabetes Mellitus Type 2: Yes - HEMATOLOGICAL/ONCOLOGICAL Hx Blood Disorders: No - INTEGUMENTARY Hx Dermatological Problems: No - MUSCULOSKELETAL/RHEUMATOLOGICAL Hx Falls: No - PSYCHIATRIC Hx Substance Use: No Meds Allergies/Adverse Reactions: Allergies Allergy/AdvReac Type Severity Reaction Status Date / Time No Known Allergies Allergy Verified 04/15/17 13:16 - Medications Medications: Current Medications Aspirin (Aspirin Chewable) 81 mg PO DAILY [facility] Last Admin: 04/20/17 09:07 Dose: 81 mg Carvedilol (Coreg) 25 mg PO BID [facility] Last Admin: 04/20/17 09:07 Dose: 25 mg Clopidogrel Bisulfate (Plavix) 75 mg PO DAILY [facility] Last Admin: 04/20/17 09:06 Dose: 75 mg Diltiazem HCl (Cardizem Cd) 120 mg PO DAILY [facility] Last Admin: 04/20/17 09:07 Dose: 120 mg Famotidine (Pepcid) 20 mg IVP Q12 [facility] Last Admin: 04/20/17 09:06 Dose: 20 mg Hydralazine HCl (Apresoline) 20 mg IVP Q6H PRN PRN Reason: Systolic Blood Pressure Hydralazine HCl (Apresoline) 25 mg PO Q6H [facility] Insulin Human Regular (Novolin R) 0 unit SC ACHS [facility] PRN Reason: Protocol Last Admin: 04/20/17 12:00 Dose: 6 unit Losartan Potassium (Cozaar) 100 mg PO DAILY [facility] Last Admin: 04/20/17 09:07 Dose: 100 mg Metformin HCl (Glucophage) 1,000 mg PO BIDCC [facility] Last Admin: 04/20/17 12:00 Dose: 1,000 mg Rosuvastatin Calcium (Crestor) 10 mg PO HS [facility] Last Admin: 04/19/17 21:34 Dose: 10 mg Physical Exam - Constitutional Appears: Non-toxic, No Acute Distress - Head Exam Head Exam: ATRAUMATIC, NORMOCEPHALIC Additional comments: CN II-CNXII - Eye Exam Eye Exam: EOMI - ENT Exam ENT Exam: Mucous Membranes Moist, Normal External Ear Exam - Neck Exam Neck exam: Positive for: Full Rom - Respiratory Exam Respiratory Exam: NORMAL BREATHING PATTERN. absent: Accessory Muscle Use, Respiratory Distress - GI/Abdominal Exam GI & Abdominal Exam: Soft. absent: Tenderness - Extremities Exam Extremities exam: Negative for: calf tenderness, pedal edema Additional comments: 5/5 strength upper and lower extremities B/L - Neurological Exam Neurological exam: Alert, Oriented x3 - Psychiatric Exam Psychiatric exam: Normal Affect, Normal Mood Results - Vital Signs Recent Vital Signs: Last Vital Signs Temp 97.3 F L 04/20/17 16:33 Pulse 78 04/20/17 16:33 Resp 18 04/20/17 16:33 BP 157/63 H 04/20/17 16:33 Pulse Ox 98 04/20/17 16:33 - Labs Result Diagrams: 04/20/17 06:03 04/20/17 06:03 Labs: Laboratory Results - last 24 hr 04/19/17 04/19/17 04/20/17 16:48 20:51 06:03 WBC 8.8 RBC 4.55 Hgb 13.8 Hct 41.3 MCV 90.7 MCH 30.4 MCHC 33.5 RDW 13.5 Plt Count 179 MPV 8.7 Neut % (Auto) 82.0 H Lymph % (Auto) 10.9 L George % (Auto) 6.8 Eos % (Auto) 0.1 Baso % (Auto) 0.2 Neut # 7.2 H Lymph # 1.0 George # 0.6 Eos # 0.0 Baso # 0.0 Sodium Potassium Chloride Carbon Dioxide Anion Gap BUN Creatinine Est GFR ( Amer) Est GFR (Non-Af Amer) POC Glucose (mg/dL) 221 H 298 H Random Glucose Calcium Phosphorus Magnesium Total Bilirubin AST ALT Alkaline Phosphatase Total Protein Albumin Globulin Albumin/Globulin Ratio 04/20/17 04/20/17 04/20/17 06:03 06:06 11:10 WBC RBC Hgb Hct MCV MCH MCHC RDW Plt Count MPV Neut % (Auto) Lymph % (Auto) George % (Auto) Eos % (Auto) Baso % (Auto) Neut # Lymph # George # Eos # Baso # Sodium 131 L Potassium 4.2 Chloride 95 L Carbon Dioxide 26 Anion Gap 14 BUN 13 Creatinine 0.7 Est GFR ( Amer) > 60 Est GFR (Non-Af Amer) > 60 POC Glucose (mg/dL) 278 H 332 H Random Glucose 253 H Calcium 8.4 L Phosphorus 3.7 Magnesium 1.4 L Total Bilirubin 0.8 AST 13 L D ALT 15 Alkaline Phosphatase 59 Total Protein 6.1 L Albumin 3.1 L Globulin 3.0 Albumin/Globulin Ratio 1.0 Assessment & Plan - Assessment and Plan (Free Text) Assessment: 76F [place] excrescences -recommend anticoagulation -no surgical intervention at this time -further recommendation per Dr. Obrien -d/w attending Douglas PGY2
[2017-04-20] MEDS: Enoxaparin 60 mg Syringe SC SCH (22:04)
[2017-04-21 01:39] VITALS: RESP 20
--- NOTE | 2017-04-21 05:11 | CP.PCM.PN ---
Subjective - Date & Time of Evaluation Date of Evaluation: 04/20/17 Time of Evaluation: 18:30 - Subjective Subjective: Patient seen and evaluated CVA 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 Physical Examination - Constitutional Appears: No Acute Distress, Confused, Chronically Ill - Head Exam Head Exam: NORMAL INSPECTION, NORMOCEPHALIC - Eye Exam Eye Exam: EOMI, Normal appearance - Respiratory Exam Respiratory Exam: Clear to Ausculation Bilateral, NORMAL BREATHING PATTERN - Cardiovascular Exam Cardiovascular Exam: REGULAR RHYTHM - GI/Abdominal Exam GI & Abdominal Exam: Soft, Normal Bowel Sounds - Neurological Exam Neurological Exam: Alert, Altered, Awake. absent: Oriented x3 Neuro motor strength exam: Left Upper Extremity: 5, Right Upper Extremity: 5 - Psychiatric Exam Psychiatric exam: Flat Affect - Skin Skin Exam: Normal Color, Warm Objective - Vital Signs/Intake and Output Vital Signs (last 24 hours): Temp Pulse Resp BP Pulse Ox 98.7 F 75 20 119/70 98 04/20/17 23:15 04/20/17 23:48 04/20/17 23:15 04/20/17 23:15 04/20/17 23:15 - Medications Medications: Current Medications Carvedilol (Coreg) 25 mg PO BID [facility] Last Admin: 04/20/17 17:47 Dose: 25 mg Diltiazem HCl (Cardizem Cd) 120 mg PO DAILY [facility] Last Admin: 04/20/17 09:07 Dose: 120 mg Enoxaparin Sodium (Lovenox) 45 mg SC Q12 [facility] Last Admin: 04/20/17 22:04 Dose: 45 mg Famotidine (Pepcid) 20 mg IVP Q12 [facility] Last Admin: 04/20/17 22:06 Dose: 20 mg Hydralazine HCl (Apresoline) 20 mg IVP Q6H PRN PRN Reason: Systolic Blood Pressure Hydralazine HCl (Apresoline) 25 mg PO Q6 [facility] Last Admin: 04/21/17 00:10 Dose: 25 mg Insulin Human Regular (Novolin R) 0 unit SC ACHS [facility] PRN Reason: Protocol Last Admin: 04/20/17 21:37 Dose: Not Given Losartan Potassium (Cozaar) 100 mg PO DAILY [facility] Last Admin: 05/24/17 09:07 Dose: 100 mg Metformin HCl (Glucophage) 1,000 mg PO BIDCC [facility] Last Admin: 04/20/17 17:47 Dose: 1,000 mg Rosuvastatin Calcium (Crestor) 10 mg PO HS [facility] Last Admin: 04/20/17 22:05 Dose: 10 mg - Labs Labs: 04/20/17 06:03 04/20/17 06:03 PT 11.6 SECONDS (9.7-12.2) 04/20/17 16:50 INR 1.0 04/20/17 16:50 APTT 30 SECONDS (21-34) 04/20/17 16:50 Assessment and Plan - Assessment and Plan (Free Text) Assessment: CVA 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
[2017-04-21 06:25] LABS: BASO % 0.2 % (0.0-2.0); EOS % 0.1 % (0.0-4.0); HEMATOCRIT 40.2 % (34.0-47.0); LYMPH # 1.3 K/uL (1.0-4.3); LYMPH % 15.5 % (20.0-40.0); MEAN CELL VOLUME 91.1 fL (81.0-99.0); MEAN CORPUSCULAR HEMOGLOBIN 30.5 pg (27.0-31.0); MEAN CORPUSCULAR HGB CONC 33.5 g/dL (33.0-37.0); MEAN PLATELET VOLUME 8.3 fL (7.2-11.7); MONO # 0.8 K/uL (0.0-0.8); MONO % 10.1 % (0.0-10.0); RED CELL DISTRIBUTION WIDTH 13.6 % (11.5-14.5); WHITE BLOOD COUNT 8.2 K/uL (4.8-10.8)
[2017-04-21 06:27] LABS: INR 1.1
[2017-04-21 06:44] LABS: CHLORIDE 94 mmol/L (98-107)
[2017-04-21 06:45] LABS: SODIUM 129 mmol/L (132-148)
[2017-04-21 06:47] LABS: BILIRUBIN,TOTAL 0.6 mg/dL (0.2-1.3); CARBON DIOXIDE 27 mmol/L (22-30); GFR AFRICAN-AMERICAN > 60
[2017-04-21 06:48] LABS: ALB/GLOB RATIO 1.1 (1.0-2.1); ALKALINE PHOSPHATASE 60 U/L (38-126); ALT/SGPT 11 U/L (9-52); AST/SGOT 14 U/L (14-36); BLOOD UREA NITROGEN 14 mg/dL (7-17); CALCIUM 8.2 mg/dl (8.6-10.4); GLUCOSE,RANDOM 219 mg/dL (65-105); PHOSPHOROUS 3.5 mg/dL (2.5-4.5); TOTAL PROTEIN 5.8 g/dL (6.3-8.3)
[2017-04-21 06:49] LABS: MAGNESIUM 1.6 mg/dL (1.6-2.3)
[2017-04-21] MEDS: (Novolin R) Insulin Human Regular 100 units/ml vial SC SCH ×4 (08:36→21:22)
--- NOTE | 2017-04-21 10:50 | CP.PCM.PN ---
<Pravin Bryson - Last Filed: 04/21/17 10:50> Subjective - Date & Time of Evaluation Date of Evaluation: 04/21/17 Time of Evaluation: 10:45 - Subjective Subjective: Medicine progress note. Attending: Dr. Wiley Pt seen and examined at bedside. No acute distress. No events overnight. OT eval pending, will continue to anticoagulate and bridge with lovenox. Objective - Vital Signs/Intake and Output Vital Signs (last 24 hours): Temp Pulse Resp BP Pulse Ox 97.8 F 72 20 151/61 H 96 04/21/17 09:00 04/21/17 09:00 04/21/17 09:00 04/21/17 09:00 04/21/17 09:00 - Medications Medications: Current Medications Carvedilol (Coreg) 25 mg PO BID [facility] Last Admin: 04/20/17 17:47 Dose: 25 mg Diltiazem HCl (Cardizem Cd) 120 mg PO DAILY [facility] Last Admin: 04/20/17 09:07 Dose: 120 mg Enoxaparin Sodium (Lovenox) 45 mg SC Q12 [facility] Last Admin: 04/20/17 22:04 Dose: 45 mg Famotidine (Pepcid) 20 mg IVP Q12 [facility] Last Admin: 04/20/17 22:06 Dose: 20 mg Hydralazine HCl (Apresoline) 20 mg IVP Q6H PRN PRN Reason: Systolic Blood Pressure Hydralazine HCl (Apresoline) 25 mg PO Q6 [facility] Last Admin: 04/21/17 05:29 Dose: 25 mg Insulin Glargine (Lantus) 10 unit SC [facility] Insulin Human Regular (Novolin R) 0 unit SC ACHS [facility] PRN Reason: Protocol Last Admin: 04/20/17 21:37 Dose: Not Given Losartan Potassium (Cozaar) 100 mg PO DAILY [facility] Last Admin: 04/20/17 09:07 Dose: 100 mg Metformin HCl (Glucophage) 1,000 mg PO BIDCC [facility] Last Admin: 04/20/17 17:47 Dose: 1,000 mg Rosuvastatin Calcium (Crestor) 10 mg PO HS [facility] Last Admin: 04/20/17 22:05 Dose: 10 mg Warfarin Sodium (Coumadin) 5 mg PO 1800 [facility] Stop: 04/21/17 18:01 - Labs Labs: 04/21/17 06:14 04/21/17 06:14 PT 12.1 SECONDS (9.7-12.2) 04/21/17 06:14 INR 1.1 04/21/17 06:14 APTT 30 SECONDS (21-34) 04/20/17 16:50 - Constitutional Appears: Non-toxic, No Acute Distress - Head Exam Head Exam: ATRAUMATIC, NORMAL INSPECTION, NORMOCEPHALIC - Eye Exam Eye Exam: EOMI - ENT Exam ENT Exam: Mucous Membranes Moist - Neck Exam Neck Exam: Full ROM, Normal Inspection - Respiratory Exam Respiratory Exam: NORMAL BREATHING PATTERN. absent: Respiratory Distress - Cardiovascular Exam Cardiovascular Exam: +S1, +S2 - GI/Abdominal Exam GI & Abdominal Exam: Soft, Normal Bowel Sounds. absent: Tenderness - Extremities Exam Extremities Exam: Full ROM, Normal Inspection - Neurological Exam Neurological Exam: Alert, Awake, CN II-XII Intact, Oriented x3 Neuro motor strength exam: Left Upper Extremity: 4, Right Upper Extremity: 4, Left Lower Extremity: 4, Right Lower Extremity: 4 Additional comments: Negative babinski, no facial droop, sensation to pain and light touch intact. - Psychiatric Exam Psychiatric exam: Normal Affect, Normal Mood - Skin Skin Exam: Dry, Intact, Normal Color, Warm Assessment and Plan - Assessment and Plan (Free Text) Assessment: This is a 76 yo female presenting with 1. 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 Hypercoagulable workup in progress. Results pending. Will continue to bridge anticoagulation with lovenox 45 mg sc q 12 hrs along with warfarin 5 mg po tonight. Will continue crestor 10 mg po hs. Cardiology Dr. Daniels has signed off. 04/20: pt is s/p ELA, which shows normal ef, atherosclerotic aorta and Lambl's excresences- will f/u with cardiology recs. Continue asa 81 mg daily, plavix 75 mg daily, crestor 10 mg daily. Neurology does recommend anticoagulation with warfarin and lovenox, not any NOACs. No coagulopathy noted. Will bridge with lovenox and give warfarin tonight. Consult placed with Dr. Obrien, cardiothoracic sx. Brain MRI (04/18/17): multiple foci of restricted diffusion scattered about both cerebral hemispheres right greater than left. Shower of emoboli of possibly or arising from the aortic arch or cardiac valve; mild chronic white matter and scattered bilateral basal nuclei lacunar type infarcts (please see full report) 04/19: pt s/p ela, will f/u with cardio recs. continue asa 81 daily and plavix 75 daily. 04/18: pt sitting up and talkative. MRI report pending. Continue asa 81 daily and plavix 75 daily. Also on NS 50 cc/hr with KCL 04/17: We are still pending the MRI, we are trying to get in touch with family. Change medications to PO. She is very talkative. On a pureed diet and nectar thick liquids at the moment. I'm curious to see if she will cooperate for PT or not 04/16: The initial head CT w/o contrast in the ER was negative. When seen in the ER she did not pass swallow eval and was very somnolent, confused, she said yes to every question I asked. NGT x 2 but she pulled it out again this morning. She is now much more awake and alert. Will re-order swallow evaluation. ASA, Statin, and also hydralzine IV if > 160 systolic. Currently pending on MRI, echo was done but still pending read. Her cardiac enzymes have been negative. She does have a cardiac history including being on Plavix and also a chest scar suggesting either CABG or valve replacement - however the does not know this and the PMD explains this is a new patient to him. She has a traylor placed on 04/15>>> will discontinue 2. History of Alzheimer 04/21: continue to monitor 04/20: pt talkative, alert, oriented 04/19: pt continues to sit up, and speak 04/18: pt sitting up, talkative 04/16: According to the and family at bedside there is dementia however not severe. They explain that at her baseline she walks, talks, and still has a fair amount performing of ADLs. Currently this morning more awake, alert, but confused 3. Hx of Hyperlipidemia Crestor 10 mg PO HS as above 4. Hx of DM 04/21: continue novolin medium dose sliding scale as well as metformin 1000 mg po bid. 04/20: pt is poorly controlled, will increase SS to medium dose 04/19: continue ISS 04/18: continue accuchecks and ISS 04/16: As of this morning the accuchecks are not recorded yet, I need to talk to someone. Also continue on the SSI and ARB, Statin, ASA -ISS 5. HTN 04/21: continue coreg 25 po bid, cardizem 120 mg po daily, losartan 100 mg po daily, hydralazine 25 mg q 6 hrs philippe and hydralazine 20 mg iv q6 hrs for SBP > 160 04/20: BP will need to be more tightly controlled, will increase hydralazine to 25mg IV q6 hrs, also continue coreg 25 mg bid, cardizem 120 mg daily, losartan 100 mg daily. 04/18 continue coreg bid and cardizem 120 daily. continue hydralazine 10 mg q 6 prn. continue losartan 100 daily. 04/17: Systolic in the 120s and 130s today 04/16: Better today. Her HCTZ was held due to the low Na. She is on slow IVF. Systolic BPs are 140s to 150s at this time. Hydralazine as above Losartan 100 daily Coreg 25 bid 6. Prophylactic measures continue pepcid 20mg q 12 hrs SCDs Dispo: pt is pending OT evaluation as well as placement into subacute rehab. discussed with Dr. Wiley. <Karma Wiley V - Last Filed: 04/21/17 21:30> Objective - Vital Signs/Intake and Output Vital Signs (last 24 hours): Temp Pulse Resp BP Pulse Ox 98.1 F 77 20 116/69 98 04/21/17 15:20 04/21/17 17:40 04/21/17 17:40 04/21/17 17:40 04/21/17 15:20 - Medications Medications: Current Medications Carvedilol (Coreg) 25 mg PO BID [facility] Diltiazem HCl (Cardizem Cd) 120 mg PO DAILY [facility] Enoxaparin Sodium (Lovenox) 45 mg SC Q12 [facility] Last Admin: 04/21/17 11:15 Dose: 45 mg Famotidine (Pepcid) 20 mg IVP Q12 [facility] Last Admin: 04/21/17 10:02 Dose: 20 mg Hydralazine HCl (Apresoline) 25 mg PO Q6 [facility] Last Admin: 04/21/17 17:37 Dose: 25 mg Insulin Glargine (Lantus) 10 unit SC HS [facility] Insulin Human Regular (Novolin R) 0 unit SC ACHS [facility] PRN Reason: Protocol Last Admin: 04/21/17 21:22 Dose: Not Given Losartan Potassium (Cozaar) 100 mg PO DAILY [facility] Metformin HCl (Glucophage) 1,000 mg PO BIDCC [facility] Last Admin: 04/21/17 17:35 Dose: 1,000 mg Rosuvastatin Calcium (Crestor) 10 mg PO HS [facility] Last Admin: 04/20/17 22:05 Dose: 10 mg - Labs Labs: 04/21/17 06:14 04/21/17 06:14 PT 12.1 SECONDS (9.7-12.2) 04/21/17 06:14 INR 1.1 04/21/17 06:14 APTT 30 SECONDS (21-34) 04/20/17 16:50 Attending/Attestation - Attestation I have personally seen and examined this patient.: Yes I have fully participated in the care of the patient.: Yes I have reviewed all pertinent clinical information, including history, physical exam and plan: Yes Notes (Text): Patient seen, examined, and case discussed with day-time resident. Patient denies acute complaints at bedside. Patient sitting upright. Family not present this morning during rounds Patient started on Lantus 10 units subqHS. Blood pressure controlled with updated regimen. Clarification: discussed with both neurology and cardiology regarding anticoagulation--->coumadin agreed given the extent noted on Brain MRI in light of Lamble excrescences. 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 Discussed with case management, patient has bed available at [facility] when medically stable Patient currently being bridged from therapuetic Lovenox to Coumadin at this time. 1. CVA * likely cardiac embolic source * Neurology (Dr. Arian Desai) on consult * Cardiology (Dr. Daniels) on consult * Patient is not a TPA candidate per admission given high NIHSS scale * Will discontinue Aspirin/Plavix to start bridge from therapuetic Lovenox to Coumadin-->discussed with cardiology and neurology on 04/20/17 * Brain MRI (04/18/17): multiple foci of restricted diffusion scattered about both cerebral hemispheres right greater than left. Shower of emoboli of possibly or arising from the aortic arch or cardiac valve; mild chronic white matter and scattered bilateral basal nuclei lacunar type infarcts * Echocardiogram (04/17/17): left ventricle is normal size, left ventricular ejection fraction is within the normal range. 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 Obrien) help appreciated-->no intervention * Head CT (04/17/17): no intracranial hemorrhage. No intracranial mass or evidence of acute infarct. Mild involutional change consistent with age * Cartoid Doppler (04/15/17): normal * Ordered for hypercoaguability workup-->pending * For blood pressure control: Coreg 25mg PO bid, Cardizem CD 120mg PO daily, Cozaar 100mg PO daily, start Hydralazine 25mg PO Q6 hours * Crestor 10mg PO qHS * On lovenox bridge to Coumadin 2. Hypertension * For blood pressure control: Coreg 25mg PO bid, Cardizem CD 120mg PO daily, Cozaar 100mg PO daily, start Hydralazine 25mg PO Q6 hours * Monitor vital signs 3. Uncontrolled diabetes * [id number]: 11.6 * Accuchecks QAC and HS * Start Metformin 1000mg PO bid * heart healthy, carb consistent diet * Start Lantus 10 units subqHS 4. Alzheimer's disease * Patient is currently not on any dementia type medications * Patient is awake, alert, oriented X3, NAD, conversant in romansh, and very pleasant 5. Lambles excrescences * Discussed with cardiology/neurology, recommend for anticoagulation for coumadin * Per neurology, given patient's age and cognition, recommend for Coumadin * Noted on ELA exam * CT surgery (Dr. obrien)-->no intervention 6. Dyslipidemia * Crestor 10mg PO qHS * elevated cholestrol, LDL; within TG and HDL 7. Electrolyte imbalance * Monitor and replete 8. Prophylactic measure * pepcid 20mg IV Q 12hours * Patient is currently on Aspirin/Plavix-->will bridge to therapuetic lovenox to Coumadin * Physical therapy eval: [facility] * Occupational eval * Acute rehab/Subacute rehab eval Disposition * Patient to start therapeutic Lovenox to Coumadin bridge for anticoagulation in light of ELA findings * Blood pressure control and sugar control * Follow-up with case management, bed available at [facility] note: PMD: Dr Michael if able to accommodate for discharge planning.
[2017-04-21] MEDS: diltiaZEM 120 mg/24 Hours CD Cap PO SCH (11:15)
[2017-04-21] MEDS: Enoxaparin 60 mg Syringe SC SCH ×2 (11:15→21:53)
--- NOTE | 2017-04-21 12:19 | CP.PCM.PN ---
Subjective - Date & Time of Evaluation Date of Evaluation: 04/21/17 Time of Evaluation: 12:17 - Subjective Subjective: Thoracic: Dr. Obrien Pt seen and examined. Resting comfortably in bed. No acute events over night. Pt has no complaints Objective - Vital Signs/Intake and Output Vital Signs (last 24 hours): Temp Pulse Resp BP Pulse Ox 97.8 F 72 20 151/61 H 96 04/21/17 09:00 04/21/17 09:00 04/21/17 09:00 04/21/17 09:00 04/21/17 09:00 - Medications Medications: Current Medications Carvedilol (Coreg) 25 mg PO BID [facility] Last Admin: 04/20/17 17:47 Dose: 25 mg Diltiazem HCl (Cardizem Cd) 120 mg PO DAILY [facility] Last Admin: 04/20/17 09:07 Dose: 120 mg Enoxaparin Sodium (Lovenox) 45 mg SC Q12 [facility] Last Admin: 04/20/17 22:04 Dose: 45 mg Famotidine (Pepcid) 20 mg IVP Q12 [facility] Last Admin: 04/20/17 22:06 Dose: 20 mg Hydralazine HCl (Apresoline) 20 mg IVP Q6H PRN PRN Reason: Systolic Blood Pressure Hydralazine HCl (Apresoline) 25 mg PO Q6 [facility] Last Admin: 04/21/17 05:29 Dose: 25 mg Insulin Glargine (Lantus) 10 unit SC HS [facility] Insulin Human Regular (Novolin R) 0 unit SC ACHS [facility] PRN Reason: Protocol Last Admin: 04/20/17 21:37 Dose: Not Given Losartan Potassium (Cozaar) 100 mg PO DAILY [facility] Last Admin: 04/20/17 09:07 Dose: 100 mg Metformin HCl (Glucophage) 1,000 mg PO BIDCC [facility] Last Admin: 04/20/17 17:47 Dose: 1,000 mg Rosuvastatin Calcium (Crestor) 10 mg PO HS [facility] Last Admin: 04/20/17 22:05 Dose: 10 mg Warfarin Sodium (Coumadin) 5 mg PO 1800 [facility] Stop: 04/21/17 18:01 - Labs Labs: 04/21/17 06:14 04/21/17 06:14 PT 12.1 SECONDS (9.7-12.2) 04/21/17 06:14 INR 1.1 04/21/17 06:14 APTT 30 SECONDS (21-34) 04/20/17 16:50 - Head Exam Head Exam: ATRAUMATIC, NORMOCEPHALIC - Eye Exam Eye Exam: EOMI - ENT Exam ENT Exam: Mucous Membranes Moist - Neck Exam Neck Exam: Full ROM - Respiratory Exam Respiratory Exam: NORMAL BREATHING PATTERN. absent: Accessory Muscle Use, Respiratory Distress - GI/Abdominal Exam GI & Abdominal Exam: Soft. absent: Tenderness - Skin Skin Exam: absent: Diaphoretic Assessment and Plan - Assessment and Plan (Free Text) Assessment: 76F w. Lambl's excrescences -asymptomatic -agree w. cardio recommendations of plavix and ASA -no plans for surgical intervention -d/w attending [facility] PGY2
[2017-04-21] MEDS ORDERED: diltiaZEM 120 mg/24 Hours CD Cap PO SCH (21:22)
[2017-04-21] MEDS ORDERED: (Lantus) Insulin Glargine, Recombinant SC SCH (22:00)
[2017-04-22 07:33] LABS: BASO % 0.5 % (0.0-2.0); HEMATOCRIT 38.9 % (34.0-47.0); LYMPH # 1.4 K/uL (1.0-4.3); LYMPH % 14.2 % (20.0-40.0); MEAN CORPUSCULAR HEMOGLOBIN 30.3 pg (27.0-31.0); MEAN CORPUSCULAR HGB CONC 33.3 g/dL (33.0-37.0); MEAN PLATELET VOLUME 8.1 fL (7.2-11.7); MONO # 0.8 K/uL (0.0-0.8); MONO % 8.5 % (0.0-10.0); RED CELL DISTRIBUTION WIDTH 13.7 % (11.5-14.5); WHITE BLOOD COUNT 9.7 K/uL (4.8-10.8)
[2017-04-22 07:55] LABS: CHLORIDE 95 mmol/L (98-107); SODIUM 131 mmol/L (132-148)
[2017-04-22 07:57] LABS: GFR AFRICAN-AMERICAN > 60
[2017-04-22 07:58] LABS: ALKALINE PHOSPHATASE 52 U/L (38-126); ALT/SGPT 18 U/L (9-52); AST/SGOT 13 U/L (14-36); BILIRUBIN,TOTAL 0.5 mg/dL (0.2-1.3); BLOOD UREA NITROGEN 13 mg/dL (7-17); CALCIUM 8.2 mg/dl (8.6-10.4); CARBON DIOXIDE 29 mmol/L (22-30); GLUCOSE,RANDOM 211 mg/dL (65-105); PHOSPHOROUS 3.1 mg/dL (2.5-4.5); TOTAL PROTEIN 5.9 g/dL (6.3-8.3)
[2017-04-22 07:59] LABS: MAGNESIUM 1.5 mg/dL (1.6-2.3)
[2017-04-22] MEDS: (Novolin R) Insulin Human Regular 100 units/ml vial SC SCH ×2 (08:10→12:40)
[2017-04-22 08:12] VITALS: BP 147/70; PULSE 89; TEMP 98.4; O2SAT 96
[2017-04-22] MEDS: Enoxaparin 60 mg Syringe SC SCH (09:22)
[2017-04-22] MEDS: Magnesium Sulfate 1 gm in D5W 1 GM/100 ML BAG IVPB SCH (10:33)
--- NOTE | 2017-04-22 13:45 | CP.PCM.DIS ---
<InezKarma V - Last Filed: 04/22/17 16:29> Provider - Provider Date of Admission: 04/15/17 14:29 Attending physician: Medhat Giles DO Hospital Course - Lab Results Lab Results: Most Recent Lab Values WBC 9.7 K/uL (4.8-10.8) 04/22/17 07: RBC 4.28 Mil/uL (3.80-5.20) 04/22/17 07: Hgb 12.9 g/dL (11.0-16.0) 04/22/17 07: Hct 38.9 % (34.0-47.0) 04/22/17 07: MCV 91.0 fL (81.0-99.0) 04/22/17 07: MCH 30.3 pg (27.0-31.0) 04/22/17 07: MCHC 33.3 g/dL (33.0-37.0) 04/22/17 07: RDW 13.7 % (11.5-14.5) 04/22/17 07: Plt Count 208 K/uL (130-400) 04/22/17 07: MPV 8.1 fL (7.2-11.7) 04/22/17 07: Neut % (Auto) 76.8 % (50.0-75.0) H 04/22/17 07: Lymph % (Auto) 14.2 % (20.0-40.0) L 04/22/17 07: [place] % (Auto) 8.5 % (0.0-10.0) 04/22/17 07: Eos % (Auto) 0.0 % (0.0-4.0) 04/22/17 07: Baso % (Auto) 0.5 % (0.0-2.0) 04/22/17 07: Neut # 7.4 K/uL (1.8-7.0) H 04/22/17 07: Lymph # 1.4 K/uL (1.0-4.3) 04/22/17 07: [place] # 0.8 K/uL (0.0-0.8) 04/22/17 07: Eos # 0.0 K/uL (0.0-0.7) 04/22/17 07:26 Baso # 0.0 K/uL (0.0-0.2) 04/22/17 07:26 Neutrophils % (Manual) 88 % (50-75) H 04/19/17 07:08 Band Neutrophils % 4 % (0-2) H 04/19/17 07:08 Lymphocytes % (Manual) 5 % (20-40) L 04/19/17 07:08 Reactive Lymphs % 1 % (0-0) H 04/18/17 06:56 Monocytes % (Manual) 3 % (0-10) 04/19/17 07:08 Platelet Estimate Normal (NORMAL) 04/19/17 07:08 Large Platelets Present 04/18/17 06:56 RBC Morphology Normal 04/19/17 07:08 Ovalocytes Slight 04/18/17 06:56 PT 11.9 SECONDS (9.7-12.2) 04/22/17 07:26 INR 1.0 04/22/17 07:26 APTT 30 SECONDS (21-34) 04/20/17 16:50 Sodium 131 mmol/L (132-148) L 04/22/17 07:26 Potassium 4.0 mmol/L (3.6-5.2) 04/22/17 07:26 Chloride 95 mmol/L (98-107) L 04/22/17 07:26 Carbon Dioxide 29 mmol/L (22-30) 04/22/17 07:26 Anion Gap 11 (10-20) 04/22/17 07:26 BUN 13 mg/dL (7-17) 04/22/17 07:26 Creatinine 0.6 MG/DL (0.7-1.2) L 04/22/17 07:26 Est GFR ( Amer) > 60 04/22/17 07:26 Est GFR (Non-Af Amer) > 60 04/22/17 07:26 POC Glucose (mg/dL) 306 mg/dL (65-110) H 04/22/17 11:13 Random Glucose 211 mg/dL (65-105) H 04/22/17 07:26 Hemoglobin A1c 11.8 % (4.2-6.5) H 04/15/17 13:43 Calcium 8.2 mg/dl (8.6-10.4) L 04/22/17 07:26 Phosphorus 3.1 mg/dL (2.5-4.5) 04/22/17 07:26 Magnesium 1.5 mg/dL (1.6-2.3) L 04/22/17 07:26 Total Bilirubin 0.5 mg/dL (0.2-1.3) 04/22/17 07:26 AST 13 U/L (14-36) L 04/22/17 07:26 ALT 18 U/L (9-52) 04/22/17 07:26 Alkaline Phosphatase 52 U/L (38-126) 04/22/17 07:26 Total Creatine Kinase 29 U/L (30-135) L 04/15/17 13:43 Troponin I 0.0450 ng/mL (0.00-0.120) 04/16/17 02:45 Total Protein 5.9 g/dL (6.3-8.3) L 04/22/17 07:26 Albumin 3.0 g/dL (3.5-5.0) L 04/22/17 07:26 Globulin 2.9 gm/dL (2.2-3.9) 04/22/17 07:26 Albumin/Globulin Ratio 1.0 (1.0-2.1) 04/22/17 07:26 Triglycerides 126 mg/dL (0-149) 04/15/17 13:43 Cholesterol 224 mg/dL (0-199) H 04/15/17 13:43 LDL Cholesterol Direct 137 mg/dL (0-129) H 04/15/17 13:43 HDL Cholesterol 56 mg/dL (30-70) 04/15/17 13:43 Urine Color Straw (YELLOW) 04/15/17 14:35 Urine Clarity Clear (Clear) 04/15/17 14:35 Urine pH 8.0 (5.0-8.0) 04/15/17 14:35 Ur Specific [place] 1.012 (1.003-1.030) 04/15/17 14:35 Urine Protein 1+ mg/dL (NEGATIVE) H 04/15/17 14:35 Urine Glucose (UA) 3+ mg/dL (Normal) H 04/15/17 14:35 Urine Ketones Trace mg/dL (NEGATIVE) 04/15/17 14:35 Urine Blood Negative (NEGATIVE) 04/15/17 14:35 Urine Nitrate Negative (NEGATIVE) 04/15/17 14:35 Urine Bilirubin Negative (NEGATIVE) 04/15/17 14:35 Urine Urobilinogen Normal mg/dL (0.2-1.0) 04/15/17 14:35 Ur Leukocyte Esterase Neg Reggie/uL (Negative) 04/15/17 14:35 Urine WBC (Auto) < 1 /hpf (0-5) 04/15/17 14:35 Urine RBC (Auto) 1 /hpf (0-3) 04/15/17 14:35 Urine Opiates Screen Negative (NEGATIVE) 04/15/17 17:22 Urine Methadone Screen Negative (NEGATIVE) 04/15/17 17:22 Ur Barbiturates Screen Negative (NEGATIVE) 04/15/17 17:22 Ur Phencyclidine Scrn Negative (NEGATIVE) 04/15/17 17:22 Ur Amphetamines Screen Negative (NEGATIVE) 04/15/17 17:22 U Benzodiazepines Scrn Negative (NEGATIVE) 04/15/17 17:22 U Oth Cocaine Metabols Negative (NEGATIVE) 04/15/17 17:22 U Cannabinoids Screen Negative (NEGATIVE) 04/15/17 17:22 Blood Type O POSITIVE 04/15/17 13:43 Antibody Screen Negative 04/15/17 13:43 Discharge Plan - Discharge Medications Prescriptions: Aspirin [Aspirin Chewable] 81 mg PO DAILY #30 ctb Famotidine [Pepcid] 20 mg PO BID #60 tab - Follow Up Plan Condition: FAIR Disposition: REHAB FACILITY/REHAB UNIT Instructions: Atrial Fibrillation (DC), Heart Healthy Diet (DC), Diabetic Hypoglycemia (DC), Fall Prevention (DC), Hyperlipidemia (DC), Stroke (DC) Additional Instructions: Patient stable to discharge to [facility] when bed available. Patient is to be under the care of Dr. Michael. She is to be given Coumadin daily and have her INR levels checked daily as well. She is to continue to be on Lovenox until her INR is between 2-3. Patient is to continue all other medications as listed: Coreg 25mg PO BID Lovenox 45mg SC Q12 Pepcid 20mg IVP Q12 Hydralazine 25mg PO Q6 Lantus 10 U SC HS Insulin Sliding Scale Cozaar 100mg PO daily Metformim 1000 mg PO BID Crestor 10mg PO HS Coumadin 5mg PO daily Medications are to be adjusted as indicated. Patient is to return to the [facility] if symptoms return. All instructions explained to the patient and she agrees. Dr. Michael is aware of the patient's transfer to [facility]. Referrals: Yg Desai MD [Staff Provider] - Pb Michael MD [Staff Provider] - Attending/Attestation - Attestation I have personally seen and examined this patient.: Yes I have fully participated in the care of the patient.: Yes I have reviewed all pertinent clinical information, including history, physical exam and plan: Yes Notes (Text): Patient seen, examined, and case discussed with day-time resident. Patient denies acute complaints at bedside. Patient sitting upright. Family not present this morning during rounds. Discussed with case management, patient has bed at [facility]. 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 Patient started on Lantus 10 units subqHS. Blood pressure controlled with updated regimen. Patient is on Aspirin 81mg Po daily for cardioprotective measure in light of completed cardiac surgery in [place] some years back. Patient's PMD: Dr Michael informed and goes to [facility] to help assist in Lovenox to Coumadin bridge. Discussed discharge order and discharge instructions with resident and patient' s family at bedside. Patient stable to discharge to [facility] when bed available. Patient is to be under the care of Dr. Michael. She is to be given Coumadin 5mg daily and have her INR levels checked daily as well. She is to continue to be on therapeutic Lovenox while being bridged to Coumadin until her INR is between 2-3. Then discontinue Lovenox and adjust Coumadin based on INR goal. Patient is to continue all other medications as listed: 1)Coreg 25mg PO BID 2) Lovenox 45mg SC Q12H while being bridged to Coumadin-->when patient has reached INR goal of 2-3. Lovenox can be discontinued. 3) Pepcid 20mg PO Q12H 4) Hydralazine 25mg PO [id number] 5) Lantus 10 U SC HS 6) Insulin Sliding Scale subq ACHS 7) Cozaar 100mg PO daily 8) Metformin 1000 mg PO BID 9) Crestor 10mg PO HS 10) Aspirin 81mg PO daily Medications are to be adjusted as indicated. Patient is to return to the [facility] if symptoms return. All instructions explained to the patient and she agrees. Dr. Michael is aware of the patient's transfer to [facility]. This is a summary of patient's hospitalization. Please refer to EMR for further details. Assessment/Plan 1. CVA * likely cardiac embolic source * Neurology (Dr. Arian Desai) on consult * Cardiology (Dr. Daniels) on consult * Patient is not a TPA candidate per admission given high NIHSS scale * bridge from therapuetic Lovenox to Coumadin for Lambles excrescences--> discussed with cardiology and neurology on 04/20/17 * Brain MRI (04/18/17): multiple foci of restricted diffusion scattered about both cerebral hemispheres right greater than left. Shower of emboli of possibly or arising from the aortic arch or cardiac valve; mild chronic white matter and scattered bilateral basal nuclei lacunar type infarcts * Echocardiogram (04/17/17): left ventricle is normal size, left ventricular ejection fraction is within the normal range. 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 Obrien) help appreciated-->no intervention * Head CT (04/17/17): no intracranial hemorrhage. No intracranial mass or evidence of acute infarct. Mild involutional change consistent with age * Cartoid Doppler (04/15/17): normal * Ordered for hypercoaguability workup-->will need to follow-up outpatient * For blood pressure control: Coreg 25mg PO bid, Cardizem CD 120mg PO daily, Cozaar 100mg PO daily, Hydralazine 25mg PO Q6 hours * Crestor 10mg PO qHS * On lovenox bridge to Coumadin; with goal: 2-3 2. Hypertension * For blood pressure control: Coreg 25mg PO bid, Cardizem CD 120mg PO daily, Cozaar 100mg PO daily, start Hydralazine 25mg PO Q6 hours * Monitor vital signs 3. Uncontrolled diabetes * [id number]: 11.6 * Accuchecks QAC and HS * Start Metformin 1000mg PO bid * heart healthy, carb consistent diet * Start Lantus 10 units subqHS 4. Alzheimer's disease * Patient is currently not on any dementia type medications * Patient is awake, alert, oriented X3, NAD, conversant in sudanese, and very pleasant 5. Lambles excrescences * Discussed with cardiology/neurology, recommend for anticoagulation for coumadin * Per neurology, given patient's age and cognition, recommend for Coumadin * Noted on IGOR exam * CT surgery (Dr. obrien)-->no intervention 6. Dyslipidemia * Crestor 10mg PO qHS * elevated cholestrol, LDL; within TG and HDL 7. Electrolyte imbalance * Monitor and replete 8. Prophylactic measure * pepcid 20mg PO Q 12hours * therapuetic lovenox to Coumadin with goal of INR: 2-3 * Acute rehab/Subacute rehab eval-->[facility] * Aspirin 81mg PO daily for cardioprotective ppx given cardiac hx (heart surgery at [place]) <Rohini Dickey - Last Filed: 04/28/17 17:45> Provider - Provider Date of Admission: 04/15/17 14:29 Attending physician: Medhat Giles DO Primary care physician: Dr. Michael Consults: Dr. Arian Desai - neurology Dr. Augie Daniels - cardiology Dr. 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 Hospital Course - Lab Results Lab Results: Most Recent Lab Values WBC 9.7 K/uL (4.8-10.8) 04/22/17 07:26 RBC 4.28 Mil/uL (3.80-5.20) 04/22/17 07:26 Hgb 12.9 g/dL (11.0-16.0) 04/22/17 07:26 Hct 38.9 % (34.0-47.0) 04/22/17 07: MCV 91.0 fL (81.0-99.0) 04/22/17 07: MCH 30.3 pg (27.0-31.0) 04/22/17 07: MCHC 33.3 g/dL (33.0-37.0) 04/22/17 07: RDW 13.7 % (11.5-14.5) 04/22/17 07: Plt Count 208 K/uL (130-400) 04/22/17 07: MPV 8.1 fL (7.2-11.7) 04/22/17 07: Neut % (Auto) 76.8 % (50.0-75.0) H 04/22/17 07: Lymph % (Auto) 14.2 % (20.0-40.0) L 04/22/17 07: [place] % (Auto) 8.5 % (0.0-10.0) 04/22/17 07: Eos % (Auto) 0.0 % (0.0-4.0) 04/22/17 07: Baso % (Auto) 0.5 % (0.0-2.0) 04/22/17 07: Neut # 7.4 K/uL (1.8-7.0) H 04/22/17 07: Lymph # 1.4 K/uL (1.0-4.3) 04/22/17 07: [place] # 0.8 K/uL (0.0-0.8) 04/22/17 07: Eos # 0.0 K/uL (0.0-0.7) 04/22/17 07: Baso # 0.0 K/uL (0.0-0.2) 04/22/17 07:26 Neutrophils % (Manual) 88 % (50-75) H 04/19/17 07:08 Band Neutrophils % 4 % (0-2) H 04/19/17 07:08 Lymphocytes % (Manual) 5 % (20-40) L 04/19/17 07:08 Reactive Lymphs % 1 % (0-0) H 04/18/17 06:56 Monocytes % (Manual) 3 % (0-10) 04/19/17 07:08 Platelet Estimate Normal (NORMAL) 04/19/17 07:08 Large Platelets Present 04/18/17 06:56 RBC Morphology Normal 04/19/17 07:08 Ovalocytes Slight 04/18/17 06:56 PT 11.9 SECONDS (9.7-12.2) 04/22/17 07:26 INR 1.0 04/22/17 07:26 APTT 30 SECONDS (21-34) 04/20/17 16:50 Sodium 131 mmol/L (132-148) L 04/22/17 07:26 Potassium 4.0 mmol/L (3.6-5.2) 04/22/17 07:26 Chloride 95 mmol/L (98-107) L 04/22/17 07:26 Carbon Dioxide 29 mmol/L (22-30) 04/22/17 07:26 Anion Gap 11 (10-20) 04/22/17 07:26 BUN 13 mg/dL (7-17) 04/22/17 07:26 Creatinine 0.6 MG/DL (0.7-1.2) L 04/22/17 07:26 Est GFR ( Amer) > 60 04/22/17 07:26 Est GFR (Non-Af Amer) > 60 04/22/17 07:26 POC Glucose (mg/dL) 306 mg/dL (65-110) H 04/22/17 11:13 Random Glucose 211 mg/dL (65-105) H 04/22/17 07:26 Hemoglobin A1c 11.8 % (4.2-6.5) H 04/15/17 13:43 Calcium 8.2 mg/dl (8.6-10.4) L 04/22/17 07:26 Phosphorus 3.1 mg/dL (2.5-4.5) 04/22/17 07:26 Magnesium 1.5 mg/dL (1.6-2.3) L 04/22/17 07:26 Total Bilirubin 0.5 mg/dL (0.2-1.3) 04/22/17 07:26 AST 13 U/L (14-36) L 04/22/17 07:26 ALT 18 U/L (9-52) 04/22/17 07:26 Alkaline Phosphatase 52 U/L (38-126) 04/22/17 07:26 Total Creatine Kinase 29 U/L (30-135) L 04/15/17 13:43 Troponin I 0.0450 ng/mL (0.00-0.120) 04/16/17 02:45 Total Protein 5.9 g/dL (6.3-8.3) L 04/22/17 07:26 Albumin 3.0 g/dL (3.5-5.0) L 04/22/17 07:26 Globulin 2.9 gm/dL (2.2-3.9) 04/22/17 07:26 Albumin/Globulin Ratio 1.0 (1.0-2.1) 04/22/17 07:26 Triglycerides 126 mg/dL (0-149) 04/15/17 13:43 Cholesterol 224 mg/dL (0-199) H 04/15/17 13:43 LDL Cholesterol Direct 137 mg/dL (0-129) H 04/15/17 13:43 HDL Cholesterol 56 mg/dL (30-70) 04/15/17 13:43 Urine Color Straw (YELLOW) 04/15/17 14:35 Urine Clarity Clear (Clear) 04/15/17 14:35 Urine pH 8.0 (5.0-8.0) 04/15/17 14:35 Ur Specific [place] 1.012 (1.003-1.030) 04/15/17 14:35 Urine Protein 1+ mg/dL (NEGATIVE) H 04/15/17 14:35 Urine Glucose (UA) 3+ mg/dL (Normal) H 04/15/17 14:35 Urine Ketones Trace mg/dL (NEGATIVE) 04/15/17 14:35 Urine Blood Negative (NEGATIVE) 04/15/17 14:35 Urine Nitrate Negative (NEGATIVE) 04/15/17 14:35 Urine Bilirubin Negative (NEGATIVE) 04/15/17 14:35 Urine Urobilinogen Normal mg/dL (0.2-1.0) 04/15/17 14:35 Ur Leukocyte Esterase Neg Reggie/uL (Negative) 04/15/17 14:35 Urine WBC (Auto) < 1 /hpf (0-5) 04/15/17 14:35 Urine RBC (Auto) 1 /hpf (0-3) 04/15/17 14:35 Urine Opiates Screen Negative (NEGATIVE) 04/15/17 17:22 Urine Methadone Screen Negative (NEGATIVE) 04/15/17 17:22 Ur Barbiturates Screen Negative (NEGATIVE) 04/15/17 17:22 Ur Phencyclidine Scrn Negative (NEGATIVE) 04/15/17 17:22 Ur Amphetamines Screen Negative (NEGATIVE) 04/15/17 17:22 U Benzodiazepines Scrn Negative (NEGATIVE) 04/15/17 17:22 U Oth Cocaine Metabols Negative (NEGATIVE) 04/15/17 17:22 U Cannabinoids Screen Negative (NEGATIVE) 04/15/17 17:22 Blood Type O POSITIVE 04/15/17 13:43 Antibody Screen Negative 04/15/17 13:43 - Hospital Course Hospital Course: On Admission: This is a 76 yo female with past medical hx of Alzheimers, HTN, HLD, heart disease presenting from home after stroke like symptoms. Pt not able to answer any questions. Hx obtained from , who is very poor historian. She was in usual state of health until 11 am this morning when she took all her meds and then looked like she was about to faint. She had trouble walking and seemed to be very weak. She became lethargic and would not respond appropriately. This happened on tuesday. The family says they did not seek med help at that time. The family saw Dr. Michael on tuesday who refilled her medications. Time last known well 11 am- with loss of strength, difficulty with gait, trouble speaking. Denies fevers, chills, cp, sob, vomiting, diarrhea, any bleeding. During Hospital Stay: Patient had a CVA likely cardiac embolic source. Neurology (Dr. Arian Desai) and Cardiology (Dr. Daniels), and CT Surgery (Dr. Obrien) were consulted. Patient was not a TPA candidate per admission given high NIHSS scale. Brain MRI (04/18/17) showed multiple foci of restricted diffusion scattered about both cerebral hemispheres right greater than left. Shower of emoboli of possibly or arising from the aortic arch or cardiac valve; mild chronic white matter and scattered bilateral basal nuclei lacunar type infarcts. Echocardiogram (04/17/17): left ventricle is normal size, left ventricular ejection fraction is within the normal range. EF>55%, no mass noted in the left ventricle. 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 Head CT (04/17/17) showed no intracranial hemorrhage. No intracranial mass or evidence of acute infarct. Mild involutional change consistent with age Cartoid Doppler (04/15/17) was normal. .Ordered for hypercoaguability workup-->pending. ASA and plavix were discotninued. Patient was put on Lovenox to bridge to Coumadin.She was given Coreg 25mg PO bid, Cardizem CD 120mg PO daily, Cozaar 100mg PO daily, and Hydralazine 25mg PO Q6 hours for blood pressure control. Patient was given Crestor for hyperlipidemia. She was started on Metformin and Lantus 10 U SC HS for diabetes. Her HbA1c was 11.6. Patient was stable to discharge to [facility] when bed available. Patient is to be under the care of Dr. Michael. She is to be given Coumadin daily and have her INR levels checked daily as well. She is to continue to be on Lovenox until her INR is between 2-3. Patient is to continue all other medications as listed: Coreg 25mg PO BID Lovenox 45mg SC Q12 Pepcid 20mg IVP Q12 Hydralazine 25mg PO Q6 Lantus 10 U SC HS Insulin Sliding Scale Cozaar 100mg PO daily Metformim 1000 mg PO BID Crestor 10mg PO HS Coumadin 5mg PO daily Medications are to be adjusted as indicated. Patient is to return to the [facility] if symptoms return. All instructions explained to the patient and she agrees. Dr. Michael is aware of the patient's transfer to [facility]. Discharge Exam - Head Exam Head Exam: ATRAUMATIC, NORMOCEPHALIC - Eye Exam Eye Exam: EOMI, Normal appearance, PERRL Pupil Exam: NORMAL ACCOMODATION - Respiratory Exam Respiratory Exam: Clear to PA & Lateral, NORMAL BREATHING PATTERN - Cardiovascular Exam Cardiovascular Exam: REGULAR RHYTHM, +S1, +S2 - GI/Abdominal Exam GI & Abdominal Exam: Normal Bowel Sounds, Soft. absent: Distended, Firm, Guarding, Tenderness - Extremities Exam Extremities exam: normal inspection - Back Exam Back exam: NORMAL INSPECTION - Neurological Exam Neurological exam: Alert, Oriented x3 - Psychiatric Exam Psychiatric exam: Normal Affect, Normal Mood - Skin Skin Exam: Dry, Intact, Normal Color, Warm
--- NOTE | 2017-04-23 06:55 | CARD ---
APPROVED REPORT EXAM: Transesophageal echocardiogram with color flow Doppler. Mitral Valve E/A ratio0.0 TDI E/Lateral E'0.0E/Medial E'0.0 Reason For Test : Rule out cardiac source of emboli. PROCEDURE After obtaining informed consent, patient underwent transesophageal echo in the [facility]. Type of Sedation : Conscious Sedation Sedation was provided by anesthesiologist. Sedation was achieved with intravenously. The IGOR was performed complications. Throughout the procedure, the blood pressure, pulse oximetry, cardiac rhythm, and rate were monitored. The patient tolerated the procedure without adverse effects. Recovery from conscious sedation was uneventful and vital signs were stable. LEFT VENTRICLE The left ventricle is normal size. The left ventricular function is normal. The left ventricular ejection fraction is within the normal range. No left ventricle thrombus noted on this study. There is no ventricular septal defect visualized. There is no left ventricular aneurysm. RIGHT VENTRICLE The right ventricular systolic function is normal. ATRIA The left atrium size is normal. No MARNI thrombus noted The right atrium size is normal. The interatrial septum is intact with no evidence for an atrial septal defect. AORTIC VALVE Aortic valve trileaflet. Lambl's excrescences noted No aortic regurgitation is present. There is no aortic valvular stenosis. There is no aortic valvular vegetation. MITRAL VALVE Mitral annular calcification and thickened Mitral leaflets noted There is no mitral valve stenosis. Mitral regurgitation is mild. TRICUSPID VALVE The tricuspid valve is normal in structure. There is mild tricuspid regurgitation. There is no tricuspid valve stenosis. PULMONIC VALVE The pulmonary valve is normal in structure. GREAT VESSELS The aortic root is normal in size. <Conclusion> The left ventricular function is normal. The left ventricular ejection fraction is within the normal range. The interatrial septum is intact with no evidence for an atrial septal defect. Aortic valve trileaflet. Lambl's excrescences noted
[2017-04-25 04:55] LABS: PHOSPHATIDYLSERINE AB IGM <25 U/mL (<25)
[2017-04-26 22:23] LABS: CARDIOLIPIN AB (IGA) <11 APL (<=11)
[2017-04-27 17:17] LABS: B2 GLYCOPROTEIN I AB(IGA) <9 SAU (<=20); B2 GLYCOPROTEIN I AB(IGG) <9 SGU (<=20); B2 GLYCOPROTEIN I AB(IGM) <9 SMU (<=20); PHOSPHATIDYLSERINE AB IGA <20 U/mL (<20)
== END 2017-04-22 17:15 | DRG 64 ==
LOC: C.ER 13:12 → C.9E 14:29 → MERGE 14:29 → C.6T 17:27
PROVIDERS: ADMIT Hospitalist; ATTEND Hospitalist
DX: I63.40 Cerebral infarction due to embolism of unspecified cerebral artery (principal); G93.40 Encephalopathy, unspecified; E11.65 Type 2 diabetes mellitus with hyperglycemia; G30.9 Alzheimer's disease, unspecified; I48.91 Unspecified atrial fibrillation; F02.80 Dementia in other diseases classified elsewhere, unspecified severity, without behavioral disturbance, psychotic disturbance, mood disturbance, and anxiety; I10 Essential (primary) hypertension; E78.5 Hyperlipidemia, unspecified; E78.00 Pure hypercholesterolemia, unspecified; Z79.82 Long term (current) use of aspirin; Z79.02 Long term (current) use of antithrombotics/antiplatelets